=== PATIENT | female | born 1935 | race Caucasian/White ===

== ENCOUNTER → 2017-10-30 | Outpatient (CLI) | payer OTHER ==
[~2017-10-30] MED LIST: HYDR12.55 PO; LISI40TA PO; METO50TA8 PO; MULTTAB58 PO; PRAV40TA2 PO; VNTHFA/IN INH; WARF5TAB90 PO
[2017-10-30 10:46] LABS: BASO % 0.2 %; BASO ABS # 0.02 K/uL (0-0.2); EOS % 0.6 %; EOS ABS # 0.05 K/uL (0-0.5); HEMATOCRIT 45.5 % (37-47); HEMOGLOBIN 16.2 g/dL (12.0-16.0); IG# 0.03 K/uL (0.00-0.02); LYMPH % 20.9 %; LYMPH ABS # 1.76 K/uL (1.2-3.4); MEAN CORPUSCULAR HEMOGLOBIN 31.3 pg (25-34); MEAN CORPUSCULAR HGB CONC 35.6 g/dl (32-36); MEAN PLATELET VOLUME 10.6 fL (7.4-10.4); MONO % 11.8 %; MONO ABS # 0.99 K/uL (0.11-0.59); NEUT % 66.1 %; NEUT ABS # 5.57 K/uL (1.4-6.5); PLATELET COUNT 208 K/uL (130-400); RED CELL DISTRIBUTION WIDTH SD 41.3 fL (36.4-46.3); WHITE BLOOD COUNT 8.42 K/uL (4.8-10.8)
[2017-10-30 10:54] LABS: INR 2.6 (0.9-1.1)
[2017-10-30 11:10] LABS: ALBUMIN 3.7 gm/dl (3.4-5.0); ALKALINE PHOSPHATASE 89 U/L (45-117); ALT/SGPT 25 U/L (12-78); AST/SGOT 22 U/L (15-37); BLOOD UREA NITROGEN 14 mg/dl (7-18); CALCIUM 9.2 mg/dl (8.5-10.1); CARBON DIOXIDE 28 mmol/L (21-32); CHOLESTEROL 179 mg/dl (0-200); CREATININE 0.86 mg/dl (0.60-1.20); GLUCOSE 117 mg/dl (70-99); POTASSIUM 4.1 mmol/L (3.5-5.1); SODIUM 140 mmol/L (136-145); TOTAL PROTEIN 7.4 gm/dl (6.4-8.2)
[2017-10-30 11:20] LABS: HEMOGLOBIN A1C 5.5 % (4.5-5.6)
== END | disposition home or self-care (01) ==
LOC: C.LAB 10:19
PROVIDERS: ATTEND Neuromusculoskeletal Medicine & OMM
DX: E78.5 Hyperlipidemia, unspecified (principal); I10 Essential (primary) hypertension; I48.91 Unspecified atrial fibrillation; R73.03 Prediabetes

== ENCOUNTER 2023-08-21 09:53 | Inpatient (IN) ==
[2023-08-21] MEDS ORDERED: MoRPHine SULFATE 2 MG/ML CARP IV PRN (10:20)
[2023-08-21] MEDS: MoRPHine SULFATE 4 MG/ML 1 ML CARP\\VIAL IV PRN ×2 (10:30→16:58)
[2023-08-21] MEDS: ACETAMINOPHEN 1,000 MG/100 ML VIAL IV STA (10:30)
[2023-08-21 10:35] LABS: Basophils # (auto) 0.03 K/uL (0.00-0.20); Basophils % (auto) 0.3 %; Eosinophils # (auto) 0.07 K/uL (0.00-0.50); Eosinophils % (auto) 0.8 %; Hematocrit (blood only) 45.9 % (37.0-47.0); Hemoglobin 16.2 g/dl (12.0-16.0); Immature Granulocytes # (auto) 0.06 K/uL (0.01-0.20); Immature Granulocytes % (auto) 0.6 %; Lymphocytes # (auto) 1.83 K/uL (1.20-3.40); Lymphocytes % (auto) 19.6 %; Mean Corpuscular Hemoglobin 30.3 pg (25.0-34.0); Mean Corpuscular Hgb Conc 35.3 g/dL (32.0-36.0); Mean Corpuscular Volume 85.8 fL (80.0-100.0); Mean Platelet Volume 10.5 fL (9.4-12.4); Monocytes # (auto) 0.86 K/uL (0.11-0.59); Monocytes % (auto) 9.2 %; Neutrophils # (auto) 6.48 K/uL (1.40-6.50); Neutrophils % (auto) 69.5 %; Platelet Count 189 K/uL (130-400); RDW Standard Deviation 39.9 fL (36.4-46.3); Red Blood Count 5.35 M/uL (4.20-5.40); White Blood Count 9.33 K/ul (4.8-10.8)
[2023-08-21 10:55] LABS: Albumin Globulin Ratio 1.4 (0.9-2); Albumin Level 3.8 gm/dl (3.4-5.0); BUN Creatinine Ratio 20.9 (10-20); Bilirubin,Total 0.9 mg/dl (0.2-1.0); Calcium 9.6 mg/dl (8.6-10.3); Creatinine Clr Calc Pharmacy 53.6 ml/min; Est GFR (African American) 92.2 ml/min; Est GFR (Non-African American) 79.6 ml/min; Globulin 2.7 gm/dl (2.5-4.0); Potassium 3.5 mmol/L (3.5-5.1); Total Protein 6.5 gm/dl (6.0-8.3)
[2023-08-21 10:58] LABS: Partial Thromboplastin Time 27 Seconds (21-31); Prothrombin Time 11.1 Seconds (9.0-12.0)
--- NOTE | 2023-08-21 11:19 | CT Scan Report ---
CT OF THE HEAD WITHOUT CONTRAST CLINICAL HISTORY: fall on thinners COMPARISON STUDY: Head CT May 17, 2022. CT DOSE: 1094.1 mGy.cm TECHNIQUE: Helical axial images of the head were obtained without IV contrast. Automated exposure con trol was utilized for the study. A dose lowering technique was utilized adhering to the principles o f ALARA. FINDINGS: No acute intracranial hemorrhage, midline shift or mass effect is present. The ventricular system is stable. White matter hypodensities are similar to prior exam and favor small vessel disease . The basal cisterns are patent. No extra-axial collections are present. There are no findings to sug gest acute dural sinus thrombosis or acute territorial infarct. No significant calvarial abnormalitie s are present. Visualized portions of the sinuses and mastoid air cells are clear. IMPRESSION: 1. No acute intracranial findings. 2. No calvarial fractures. ACT 112: Negative or not required by law. Electronically signed by: Haresh Anderson M.D. 08/21/2023 11:17 AM
--- NOTE | 2023-08-21 11:38 | Emergency Department Note ---
Impression & Plan director long term care (current) use of anticoagulants, Fall from standing, Displaced fracture of right femoral neck ED Provider Note NAME: YOLANDA AGUILAR AGE: 88 SEX: F : 1935 ARRIVES VIA: Ambulance INFORMANT: Patient ED PROVIDER(S): Adarsh Nazario MD CHIEF COMPLAINT: Fall, right hip pain PLAN: Disposition: Admit MEDICAL DECISION MAKING: The patient is a pleasant 88-year-old woman with a past medical history of atrial fibrillation on Eliquis, history of CHF, history of osteoarthritis presents to the ED emergency department via EMS after having a fall when she experienced pain in her right hip which she has had chronically and lost her balance. She denies head strike or loss of consciousness. The patient and family at bedside describe that she has had ongoing pain in her right hip for months. In particular they feel her pain was worse over the past week. However they are confident she has not had any falls prior to that. However they do note that they were aware of severe arthritis and that a hip replacement had been recommended on her outpatient follow-up with orthopedics. However the patient at that time was preferring to defer surgery. Otherwise no fevers, chills, cough, congestion and GERD symptoms. Of note, the patient did arrive to emergency department during time of high volume, acuity and prolonged emergency department waiting times. Critical pathways initiated from triage. On evaluation the patient is uncomfortable no distress, afebrile stable vital signs. She has deformity of the right hip with shortening. Distal PMS is intact. EKG without overt acute ischemia. CXR negative for acute cardiopulmonary process per my personal preliminary review/interpretation. WBC and platelets normal limits. HCT within normal limits. Chemistry without metabolic acidosis. Electrolytes and LFTs unremarkable. UA without evidence of infection. CT of the head negative for acute abnormalities. Chest x-ray negative for acute abnormalities. X-rays of the pelvis and right hip demonstrate subcapital femoral neck fracture interpreted as age-indeterminate. Findings reviewed with the patient and family at bedside. They agree with plan for admission. Case was discussed with Dr. Puri, [facility] hospitalist, who will evaluate the patient for admission. Dr. James, orthopedics on-call was made aware. Triage Nursing notes reviewed and agree them. Prior/external medical records reviewed Vital Signs: reviewed Differential diagnosis: Fracture, dislocation, contusion, intra-abdominal, pneumothorax, intrathoracic, intracranial, neurologic, compartment syndrome, rhabdomyolysis, as well as other pathologies. ER treatment provided: See below. Diagnostics interpreted by me: ECG: Atrial fibrillation with RVR, 103 bpm, no ectopy, right bundle much block, left posterior fascicular block, no overt ST elevation or depression, QTc 479, QRS 112. Cardiac Monitoring: An order for continuous cardiac monitoring was placed and demonstrated Atrial fibrillation with RVR, 103 bpm, no ectopy. Laboratory studies: See below Imaging studies: See below Consultation(s): Dr. Puri, [facility] hospitalist Dr. James, orthopedics on-call HPI: The patient is a pleasant 88-year-old woman with a past medical history of atrial fibrillation on Eliquis, history of CHF, history of osteoarthritis presents to the ED emergency department via EMS after having a fall when she experienced pain in her right hip which she has had chronically and lost her balance. She denies head strike or loss of consciousness. The patient and family at bedside describe that she has had ongoing pain in her right hip for months. In particular they feel her pain was worse over the past week. However they are confident she has not had any falls prior to that. However they do note that they were aware of severe arthritis and that a hip replacement had been recommended on her outpatient follow-up with orthopedics. However the patient at that time was preferring to defer surgery. Otherwise no fevers, chills, cough, congestion and GERD symptoms. ROS: See above HPI for pertinent positives & negatives. A total of 10 systems reviewed and were otherwise negative. VITALS:See Below PHYSICAL EXAMINATION: GENERAL: Awake, alert, uncomfortable-appearing, in no distress, BMI 20.8. HENT: Normocephalic, atraumatic. Oropharynx unremarkable. EYES: Normal conjunctiva. Sclera non-icteric. NECK: Supple. No nuchal rigidity. FROM. No JVD. RESPIRATORY: Clear to auscultation. CARDIAC: Regular rate, irregular rhythm. Extremities warm and well perfused. Pulses equal. ABDOMEN: Soft, non-distended. No tenderness to palpation. No rebound or guarding. No masses. MUSCULOSKELETAL: Chest examination reveals no tenderness. The back is symmetrical on inspection without obvious abnormality. There is no CVA tenderness to palpation. Deformity of the right hip with shortening. Distal PMS is intact. LOWER EXTREMITIES: Calves are equal size bilaterally and non-tender. No edema. No discoloration. NEURO: Normal sensorium. No sensory or motor deficits noted. SKIN: No rash or jaundice noted. 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 of foot (Chronic) Overflow incontinence Chronic systolic (congestive) heart failure Medical History Meningioma Osteoarthritis of right hip Osteoarthritis Diabetes type 2, uncontrolled History of ischemic cardiomyopathy Severe mitral regurgitation Severe tricuspid regurgitation CHF (congestive heart failure) Atrial fibrillation Nausea and vomiting after administration of anesthetic agent Osteoarthritis History of gastric ulcer On anticoagulant therapy Deep vein thrombosis Hyperlipidemia Hypertension Asthma Smoking history Surgical History Hx of dilation and curettage History of neck surgery History of section History of esophagogastroduodenoscopy (EGD) History of cholecystectomy History of appendectomy History of tooth extraction History of right cataract extraction Family History Father Family history of diabetes mellitus Cardiovascular disease Myocardial infarction Sister Family hx of colon cancer Colorectal cancer Mother Hypertension Brother Cancer Denies family history of Ovarian cancer Prostate cancer Breast cancer Social History Smoking Status: Never smoker Second Hand Exposure: No; Do You Dip or Chew Tobacco: No; Hx Alcohol Use: No Hx Substance Use: No Preferred Language: Macedonian Communication Ability: Effective Visual Impairment: No Limitations Hearing Ability: Normal Student Teacher Required: No Beliefs That Will Affect Care: None marital status: Single Current Living Situation: Alone current occupational status: retired How many Children do You have: 1 Feels Safe at Home: Yes Childhood Exposure to Second-Hand Smoke: Yes Diet: diabetic caffeine: Yes during the past year weight has: remained stable Dental Care, Regularly: No Physical Activity Frequency: Does not Exercise Seatbelt Use: always Sunscreen Use: No Assistive Devices: Glasses Allergies Allergies Allergy/AdvReac Type Severity Reaction Status Date / Time latex Allergy Severe swelling Verified 05/08/23 15:25 of lips codeine AdvReac Intermediate GI SYMPTOMS Verified 05/08/23 15:25 atorvastatin AdvReac Unknown unknown Verified 05/08/23 15:25 metronidazole AdvReac Unknown unknown Verified 05/08/23 15:25 procaine AdvReac Unknown unknown Verified 05/08/23 15:25 Home Meds Home Medications Medication Instructions Recorded Confirmed multivitamin 1 tab PO QPM 01/07/18 08/21/23 apixaban 5 mg tablet 5 mg PO BID 08/29/18 08/21/23 flash glucose scanning reader 06/02/19 05/08/23 (FreeStyle Daphne 10 Day [place]) furosemide 40 mg tablet 40 mg PO UD 07/25/21 08/21/23 sacubitril 24 mg-valsartan 26 mg 1 tab PO BID 07/25/21 08/21/23 tablet (Entresto) fenofibrate nanocrystallized 145 145 mg PO DAILY 05/17/22 08/21/23 mg tablet metoprolol succinate 100 mg 100 mg PO UD 05/17/22 08/21/23 tablet,extended release 24 hr metoprolol succinate 25 mg 25 mg PO UD 05/17/22 08/21/23 tablet,extended release 24 hr levothyroxine 50 mcg tablet 0 mcg PO DAILY 08/21/23 08/21/23 (Synthroid) Previous Rx's Medication Instructions Recorded diaper,brief,adult,disposable #32 ea 10/08/18 diaper,brief,adult,disposable #32 ea 04/15/19 flash glucose sensor (FreeStyle #1 ea 07/25/21 Daphne 2 Sensor kit) Bedside Commode #1 ea 08/22/22 flash glucose sensor (FreeStyle #1 ea 04/04/23 Daphne 14 Day Sensor kit) glimepiride 2 mg tablet 2 mg PO DAILY #90 tabs 04/04/23 dapagliflozin propanediol 5 mg 5 mg PO DAILY #90 tabs 05/08/23 tablet (Farxiga) pravastatin 80 mg tablet 80 mg PO DAILY #90 tabs 05/16/23 digoxin 125 mcg (0.125 mg) tablet 125 mcg PO QAM #90 tabs 06/04/23 Results & Data (ED) Vital Signs Vital Signs - 24 hr 08/21/23 10:04 08/21/23 10:34 08/21/23 10:36 Temperature 36.7 C Temperature Source Skin Pulse Rate 120 H 108 H 113 H Pulse Rate from SpO2 Sensor 113 H Respiratory Rate 18 17 Blood Pressure 169/100 H Blood Pressure Mean 123 Pulse Oximetry 97 99 Oxygen Delivery Method Room Air Sepsis Recent Fever Within 48 Hours No Sepsis New/Unexplained Change in Mental Status No Sepsis Action Taken by Nursing No Action Required 08/21/23 11:05 08/21/23 11:39 08/21/23 12:00 Temperature Temperature Source Pulse Rate 122 H 130 H 94 H Pulse Rate from SpO2 Sensor 107 H 109 H Respiratory Rate 22 13 17 Blood Pressure 168/143 H 171/121 H 186/118 H Blood Pressure Mean 151 137 140 Pulse Oximetry 98 98 97 Oxygen Delivery Method Room Air Room Air Room Air Sepsis Recent Fever Within 48 Hours Sepsis New/Unexplained Change in Mental Status Sepsis Action Taken by Nursing Laboratory Data Attestation: I reviewed the patient's lab results. 08/21/23 10:15 08/21/23 10:15 Lab Results 08/21/23 08/21/23 Range/Units 10:15 11:35 WBC 9.33 (4.8-10.8) K/ul RBC 5.35 (4.20-5.40) M/uL Hgb 16.2 H (12.0-16.0) g/dl Hct 45.9 (37.0-47.0) % MCV 85.8 (80.0-100.0) fL MCH 30.3 (25.0-34.0) pg MCHC 35.3 (32.0-36.0) g/dL RDW Std Deviation 39.9 (36.4-46.3) fL RDW Coeff of [place] 13.0 (11.5-14.5) % Plt Count 189 (130-400) K/uL MPV 10.5 (9.4-12.4) fL Immature Gran % (Auto) 0.6 % Neut % (Auto) 69.5 % Lymph % (Auto) 19.6 % [place] % (Auto) 9.2 % Eos % (Auto) 0.8 % Baso % (Auto) 0.3 % Neut # (Auto) 6.48 (1.40-6.50) K/uL Lymph # (Auto) 1.83 (1.20-3.40) K/uL [place] # (Auto) 0.86 H (0.11-0.59) K/uL Eos # (Auto) 0.07 (0.00-0.50) K/uL Baso # (Auto) 0.03 (0.00-0.20) K/uL Immature Gran # (Auto) 0.06 (0.01-0.20) K/uL ESR 13 (0-30) mm/hr PT 11.1 (9.0-12.0) Seconds INR 1.0 (0.9-1.1) APTT 27 (21-31) Seconds PTT Ratio 1.0 Sodium 138 (136-145) mmol/L Potassium 3.5 (3.5-5.1) mmol/L Chloride 106 (98-107) mmol/L Carbon Dioxide 21 (21-32) mmol/L Anion Gap 11 (3-11) BUN 14 (6-23) mg/dl Creatinine 0.67 (0.6-1.2) mg/dl Est Cr Clr Drug Dosing 53.6 ml/min Est GFR ( Amer) 92.2 ml/min Est GFR (Non-Af Amer) 79.6 ml/min BUN/Creatinine Ratio 20.9 H (10-20) Glucose 124 H (70-99(Fasting)) mg/dl Calcium 9.6 (8.6-10.3) mg/dl Total Bilirubin 0.9 (0.2-1.0) mg/dl AST 34 (13-39) U/L ALT 27 (7-52) U/L Alkaline Phosphatase 62 (34-104) U/L Total Protein 6.5 (6.0-8.3) gm/dl Albumin 3.8 (3.4-5.0) gm/dl Globulin 2.7 (2.5-4.0) gm/dl Albumin/Globulin Ratio 1.4 (0.9-2) Urine Color Yellow Urine Appearance Clear (Clear) Urine pH 7.5 (4.5-7.5) Ur Specific [place] 1.008 (1.000-1.030) Urine Protein Negative (Negative) Urine Glucose (UA) Negative (Negative) Urine Ketones Negative (Negative) Urine Blood Negative (Negative) Urine Nitrite Negative (Negative) Urine Bilirubin Negative (Negative) Urine Urobilinogen Negative (Negative) Ur Leukocyte Esterase Negative (Negative) Administered Medications Lactated Ringer's (Lr) 1,000 mls @ 110 mls/hr IV .Q9H6M TRISHA Stop: 08/22/23 16:16 Last Admin: 08/21/23 22:37 Dose: 110 mls/hr Documented By: Infusion: 08/21/23 22:37 Dose: Infused Documented By: Admin: 08/21/23 13:50 Dose: 110 mls/hr Documented By: GERONIMO Morphine Sulfate (Morphine Sulfate 2 Mg/Ml Carp) 1 mg IV Q4H PRN PRN Reason: Moderate Pain (4,5,6) on NRS Stop: 09/04/23 13:25 Last Admin: 08/21/23 20:39 Dose: 1 mg Documented By: ESPINOZA Morphine Sulfate (Morphine Sulfate 4 Mg/Ml 1 Ml Carp\Vial) 2 mg IV Q4H PRN PRN Reason: Severe Pain (7,8,9,10) on NRS Stop: 09/04/23 13:25 Last Admin: 08/21/23 16:58 Dose: 2 mg Documented By: WRJp Discontinued Medications Digoxin (Digoxin 0.125 Mg Tab) 0.125 mg PO NOW ONE Stop: 08/21/23 13:49 Last Admin: 08/21/23 15:07 Dose: 0.125 mg Documented By: GERONIMO Acetaminophen (Ofirmev) 1,000 mg in 100 mls @ 400 mls/hr IV NOW STA Stop: 08/21/23 10:34 Last Infusion: 08/21/23 10:49 Dose: Infused Documented By: Admin: 08/21/23 10:30 Dose: 400 mls/hr Documented By: AVERY Insulin Aspart (Insulin Aspart Per Unit Charge) 0 units SC ACHS TRISHA Stop: 09/20/23 16:29 Last Admin: 08/21/23 21:33 Dose: Not Given Documented By: ESPINOZA Co-signed By: JB Admin: 08/21/23 17:48 Dose: Not Given Documented By: WRJp Metoprolol Succinate (Metoprolol Succ 25mg Ext Rel Tab) 125 mg PO NOW ONE Stop: 08/21/23 13:31 Last Admin: 08/21/23 15:07 Dose: 125 mg Documented By: GERONIMO Morphine Sulfate (Morphine Sulfate 4 Mg/Ml 1 Ml Carp\Vial) 2 mg IV Q1H PRN PRN Reason: Severe Pain (Rating 7,8,9,10) Stop: 09/04/23 10:19 Last Admin: 08/21/23 11:36 Dose: 2 mg Documented By: Admin: 08/21/23 10:30 Dose: 2 mg Documented By: AVERY Morphine Sulfate (Morphine Sulfate 2 Mg/Ml Carp) 2 mg IV NOW STA Stop: 08/21/23 11:21 Last Admin: 08/21/23 11:42 Dose: Not Given Documented By: LYN Imaging Data Radiologist's Impression: Hip/Pelvis X-Ray 08/21/23 10:07 XR hip RT 2V w pelvis CLINICAL HISTORY: Fall. COMPARISON: Right hip radiographs January 27, 2021. FINDINGS: There is a displaced subcapital right femoral neck fracture. This fracture is age indeterminate but new since radiographs of December 28, 2020. Apparent resorption of a portion of the right femoral neck. Severe right hip osteoarthritis is noted with marked joint space narrowing with subchondral sclerosis and cystic change. No additional fractures are identified on this exam. IMPRESSION: 1. Displaced subcapital right femoral neck fracture. This fracture is age indeterminate. 2. Severe right hip osteoarthritis. Marked right hip joint space narrowing with subchondral sclerosis and flattening of the right femoral head with remodeling of the acetabulum. ACT 112: Negative or not required by law. Electronically signed by: Haresh Andersno M.D. 08/21/2023 11:[address] 08/21/23 10:08 CT OF THE HEAD WITHOUT CONTRAST CLINICAL HISTORY: fall on thinners COMPARISON STUDY: Head CT May 17, 2022. CT DOSE: 1094.1 mGy.cm TECHNIQUE: Helical axial images of the head were obtained without IV contrast. Automated exposure control was utilized for the study. A dose lowering technique was utilized adhering to the principles of ALARA. FINDINGS: No acute intracranial hemorrhage, midline shift or mass effect is present. The ventricular system is stable. White matter hypodensities are similar to prior exam and favor small vessel disease. The basal cisterns are patent. No extra-axial collections are present. There are no findings to suggest acute dural sinus thrombosis or acute territorial infarct. No significant calvarial abnormalities are present. Visualized portions of the sinuses and mastoid air cells are clear. IMPRESSION: 1. No acute intracranial findings. 2. No calvarial fractures. ACT 112: Negative or not required by law. Electronically signed by: Haresh Anderson M.D. 08/21/2023 11:17 AM Chest X-Ray 08/21/23 11:24 XR chest 1V not portable HISTORY: preop COMPARISON: Chest 03/15/2018. FINDINGS: No pneumothorax. No pleural effusions. The lungs are clear. The heart remains borderline enlarged. No focal lung consolidations to suggest a pneumonia. No evidence for pulmonary edema. There are old, healed left-sided rib fractures. Prior cholecystectomy. There is mild elevation of the right hemidiaphragm. IMPRESSION: No acute process. ACT 112: Negative or not required by law. Electronically signed by: Scott Cortes M.D. 08/21/2023 11:51 AM Discharge Plan Visit Data Chief Complaint: Hip Pain Stated Complaint: FALL, HIP PAIN ED Provider: Adarsh Nazario Discharge Problem: intermediate (current) use of anticoagulants, Fall from standing, Displaced fracture of right femoral neck Patient Disposition: Admitted As Inpatient Discharge Instructions Interventions: ED Discharge Assessment Last Done: 08/21/23 13:03 Discharge Problem: Fall from standing Qualifiers: Encounter type: initial encounter Qualified Code(s): W19.XXXA - Unspecified fall, initial encounter
[2023-08-21] MEDS: MoRPHine SULFATE 2 MG/ML CARP IV STA (11:42)
[2023-08-21 11:53] LABS: Appearance Urine Clear (Clear); Bilirubin Urine Negative (Negative); Blood Urine Negative (Negative); Color Urine Yellow; Glucose Urine UA Negative (Negative); Ketones Urine Negative (Negative); Leukocyte Esterase Urine Negative (Negative); Nitrite Urine Negative (Negative); Protein Urine Negative (Negative); Specific Gravity Urine 1.008 (1.000-1.030); Urobilinogen Urine Negative (Negative); pH Urine 7.5 (4.5-7.5)
--- NOTE | 2023-08-21 11:53 | XRay Report ---
XR chest 1V not portable HISTORY: preop COMPARISON: Chest 03/15/2018. FINDINGS: No pneumothorax. No pleural effusions. The lungs are clear. The heart remains borderline en larged. No focal lung consolidations to suggest a pneumonia. No evidence for pulmonary edema. There a re old, healed left-sided rib fractures. Prior cholecystectomy. There is mild elevation of the right hemidiaphragm. IMPRESSION: No acute process. ACT 112: Negative or not required by law. Electronically signed by: Scott Cortes M.D. 08/21/2023 11:51 AM
--- NOTE | 2023-08-21 11:59 | XRay Report ---
XR hip RT 2V w pelvis CLINICAL HISTORY: Fall. COMPARISON: Right hip radiographs January 27, 2021. FINDINGS: There is a displaced subcapital right femoral neck fracture. This fracture is age indeterm inate but new since radiographs of December 28, 2020. Apparent resorption of a portion of the right femoral neck. Severe right hip osteoarthritis is noted with marked joint space narrowing with subchon dral sclerosis and cystic change. No additional fractures are identified on this exam. IMPRESSION: 1. Displaced subcapital right femoral neck fracture. This fracture is age indeterminate. 2. Severe right hip osteoarthritis. Marked right hip joint space narrowing with subchondral sclerosis and flattening of the right femoral head with remodeling of the acetabulum. ACT 112: Negative or not required by law. Electronically signed by: Haresh Anderson M.D. 08/21/2023 11:57 AM
--- NOTE | 2023-08-21 12:09 | History & Physical Report ---
Date of Service August 21, 2023 Assessment & Plan (1) Displaced fracture of right femoral neck: Plan: Patient sustained a mechanical ground-level fall on the morning of 08/20 Right hip x-ray on arrival revealed displaced subcapital right femoral neck fracture CT revealed no acute findings No signs of active bleeding on clinical exam; Hgb 16.2 Hold Eliquis (patient did not take the morning of 08/20; last taken the evening of 08/19) Acetaminophen IV q8h as needed for pain 1-3 Morphine 1-2mg IV q4h as needed for breakthrough pain Orthopedic surgery consulted Plan is to go to the OR on 08/21 Hx of GA in 2018 and CHF Cardiology consulted for perioperative cardiac risk assessment Bedrest for now A.m. 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 Pan at [facility] [place] Hx of presumed ischemic cardiomyopathy with an EF in the range of 25% with an LAD wall motion abnormality in 03/2018 Echo in 05/2018 with EF at 45% (7) Severe mitral regurgitation: (8) Severe tricuspid regurgitation: (9) Hyperlipidemia: Plan [facility] DNR/DNI T2DM diet; n.p.o. at midnight VTE PPx: Hold Eliquis for now in the setting of acute trauma; mechanical DVT PPx per orthopedics History of Present Illness Chief Complaint: Fall, Right Hip Pain Primary Care Provider: Percy Kennedy, III, PAUL Kathie is a pleasant 88-year-old female with PMH of HTN, HLD, asthma, DVT, gastric ulcer, atrial fibrillation (on apixaban), CHF, and T2DM. She presented via EMS after sustaining a ground-level mechanical fall on the morning of 08/20. Patient's daughter (Daphne) is present at the bedside and provides additional history. Patient lives alone in a senior apartment. She reports that she was trying to close her patio door slider, and her right leg gave out. She is currently on blood thinners. No head strike. No LOC. Patient fell onto her right hip and back. She notes that earlier in the week, she "turned weird" and may have injured her hip, as her right leg has been numb x 1 week with standing and walking. Patient ambulates with a walker chair at baseline. After her fall, she was unable to stand, and tried crawling across the floor. Luckily, building inspectors came by about 20 minutes later and helped her up and called an ambulance. Patient denies feeling dizzy prior to her fall, however she does note some lightheadedness with walking but not today. She believes she just lost her balance or her right leg gave out on her. Patient does receive steroid injections into her right hip for osteoarthritis, with the last injection being on 08/09/2023. She has been told that she will need a hip replacement for the past several years. At time of admission, she rates her right hip pain as a constant 6/10 pain. Worse with movements. No radiation to the lower back. No pain in her left hip. She notes that the right leg is numb. Patient did not take any pain medicine before coming in. The only medication she took this morning was her thyroid medicine; she has not had her Eliquis today, and believes she last took it the evening of 08/19. Patient denies smoking, tobacco use, and recent alcohol use. She does have a history of GA in 2018; patient's daughter believes no stents were placed at that time; she is not currently on Plavix or aspirin. Patient is hypertensive at 186/118 at time of admission; vitals otherwise stable. ED course: Morphine sulfate 2 mg IV Acetaminophen 1000 mg IV ROS: Patient endorses R hip pain, right leg numbness and tingling, loss of appetite, and decreased urinary frequency (which patient attributes to not drinking enough fluids). Patient denies fever, chills, dizziness, lightheadedness, REDD, chest pain, chest palpitations, SOB, abdominal pain, N/V/D, change in urinary/bowel habits, blood in the urine or stool, or saddle anesthesia. Allergies Allergy/AdvReac Type Severity Reaction Status Date / Time latex Allergy Severe swelling Verified 05/08/23 15:25 of lips codeine AdvReac Intermediate GI SYMPTOMS Verified 05/08/23 15:25 atorvastatin AdvReac Unknown unknown Verified 05/08/23 15:25 metronidazole AdvReac Unknown unknown Verified 05/08/23 15:25 procaine AdvReac Unknown unknown Verified 05/08/23 15:25 Home Medications Medication Instructions Recorded Confirmed Type multivitamin 1 tab PO QPM 01/07/18 08/21/23 History apixaban 5 mg tablet 5 mg PO BID 08/29/18 08/21/23 History diaper,brief,adult,disposable #32 ea 10/08/18 05/08/23 Rx diaper,brief,adult,disposable #32 ea 04/15/19 05/08/23 Rx flash glucose scanning reader 06/02/19 05/08/23 History (FreeStyle Daphne 10 Day Anderson) flash glucose sensor (FreeStyle #1 ea 07/25/21 05/08/23 Rx Daphne 2 Sensor kit) furosemide 40 mg tablet 40 mg PO UD 07/25/21 08/21/23 History sacubitril 24 mg-valsartan 26 mg 1 tab PO BID 07/25/21 08/21/23 History tablet (Entresto) fenofibrate nanocrystallized 145 145 mg PO DAILY 05/17/22 08/21/23 History mg tablet metoprolol succinate 100 mg 100 mg PO UD 05/17/22 08/21/23 History tablet,extended release 24 hr metoprolol succinate 25 mg 25 mg PO UD 05/17/22 08/21/23 History tablet,extended release 24 hr Bedside Commode #1 ea 08/22/22 05/08/23 Rx flash glucose sensor (FreeStyle #1 ea 04/04/23 05/08/23 Rx Daphne 14 Day Sensor kit) glimepiride 2 mg tablet 2 mg PO DAILY #90 tabs 04/04/23 08/21/23 Rx dapagliflozin propanediol 5 mg 5 mg PO DAILY #90 tabs 05/08/23 08/21/23 Rx tablet (Farxiga) pravastatin 80 mg tablet 80 mg PO DAILY #90 tabs 05/16/23 08/21/23 Rx digoxin 125 mcg (0.125 mg) tablet 125 mcg PO QAM #90 tabs 06/04/23 08/21/23 Rx levothyroxine 50 mcg tablet 0 mcg PO DAILY 08/21/23 08/21/23 History (Synthroid) Past Med/Surg History Problem List (Updated 08/21/23 @ 17:32 by Adarsh Nazario MD) Fracture of femoral neck, right, closed (Acute) Displaced fracture of right femoral neck Hypothyroidism 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 (Chronic) Hypertension (Chronic) Smoking history (Chronic) Asthma (Chronic) Atrial fibrillation (Chronic) Severe tricuspid regurgitation (Chronic) Severe mitral regurgitation (Chronic) Patent foramen ovale (Chronic) Hyperlipidemia (Chronic) History of ischemic cardiomyopathy (Chronic) Fatigue (Chronic) Osteoarthritis (Chronic) Osteoarthritis of right hip (Chronic) 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 (Chronic) Loss of protective sensation of skin of foot (Chronic) Overflow incontinence Chronic systolic (congestive) heart failure Medical History Meningioma Osteoarthritis of right hip Osteoarthritis Diabetes type 2, uncontrolled History of ischemic cardiomyopathy Severe mitral regurgitation Severe tricuspid regurgitation CHF (congestive heart failure) Atrial fibrillation Nausea and vomiting after administration of anesthetic agent Osteoarthritis History of gastric ulcer On anticoagulant therapy Deep vein thrombosis Hyperlipidemia Hypertension Asthma Smoking history Surgical History Hx of dilation and curettage History of neck surgery History of section History of esophagogastroduodenoscopy (EGD) History of cholecystectomy History of appendectomy History of tooth extraction History of right cataract extraction Family History Father Family history of diabetes mellitus Cardiovascular disease Myocardial infarction Sister Family hx of colon cancer Colorectal cancer Mother Hypertension Brother Cancer Denies family history of Ovarian cancer Prostate cancer Breast cancer Social History Smoking Status: Never smoker Second Hand Exposure: No; Do You Dip or Chew Tobacco: No; Hx Alcohol Use: No Hx Substance Use: No Preferred Language: Jordanian Communication Ability: Effective Visual Impairment: No Limitations Hearing Ability: Normal Certified Orthotist/Pedorthist Required: No Beliefs That Will Affect Care: None marital status: Single Current Living Situation: Alone current occupational status: retired How many Children do You have: 1 Feels Safe at Home: Yes Childhood Exposure to Second-Hand Smoke: Yes Diet: diabetic caffeine: Yes during the past year weight has: remained stable Dental Care, Regularly: No Physical Activity Frequency: Does not Exercise Seatbelt Use: always Sunscreen Use: No Assistive Devices: Glasses Review of Systems Review of Systems: See HPI above Physical Exam Physical Exam: General: no acute distress; pleasant affect; non-toxic appearing; well- nourished; cooperative; SpO2 95% on RA HEENT: normocephalic, atraumatic; no scleral icterus; PERRLA w/ EOMs intact; moist mucus membrane; vision and hearing grossly intact Neck: supple; no lymphadenopathy; trachea midline Skin: warm, dry without signs of tenting; no cyanosis; no rashes, bruising, lesions, or erythema noted CV: chest wall NTP; irregularly irregular rhythm tachycardic around 100 bpm; S1/S2 normal; 2/6 systolic ejection murmur auscultated at the second ICS MCL; pulses intact and symmetric at radial, DP, and PT Lungs: no acute respiratory distress; symmetrical chest wall expansion; clear breath sounds across all lung ghotra w/o adventitious sounds; no wheezing ABD: Soft, NTP; BS present; no rebound/guarding; no distention MSK: no tics or fasciculations; no edema noted in the LEs b/l, nonerythematous; right hip is NTP LEs: Patient demonstrates ability to wiggle toes, plantarflex, and dorsiflex bilaterally against resistance; patient reports sensation is intact and symmetric in her lower extremities assessed via light touch at the toes and calves Neuro: A&Ox3; normal mood and affect; fluent speech; no focal deficits; sensation intact in the LEs bilaterally Results & Data Results & Data Vital Signs (Past 12 Hours) Vital Signs Temp Pulse Resp BP Pulse Ox O2 Del Method 08/21/23 10:36 113 H 08/21/23 10:34 108 H 17 99 08/21/23 10:04 36.7 C 120 H 18 169/100 H 97 Room Air Laboratory Results Abnormal lab results 08/21/23 Range/Units 10:15 Hgb 16.2 H (12.0-16.0) g/dl [place] # (Auto) 0.86 H (0.11-0.59) K/uL BUN/Creatinine Ratio 20.9 H (10-20) Glucose 124 H (70-99(Fasting)) mg/dl Diagnostic Findings Hip/Pelvis X-Ray 08/21/23 10:07 XR hip RT 2V w pelvis CLINICAL HISTORY: Fall. COMPARISON: Right hip radiographs January 27, 2021. FINDINGS: There is a displaced subcapital right femoral neck fracture. This fracture is age indeterminate but new since radiographs of December 28, 2020. Apparent resorption of a portion of the right femoral neck. Severe right hip osteoarthritis is noted with marked joint space narrowing with subchondral sclerosis and cystic change. No additional fractures are identified on this exam. IMPRESSION: 1. Displaced subcapital right femoral neck fracture. This fracture is age indeterminate. 2. Severe right hip osteoarthritis. Marked right hip joint space narrowing with subchondral sclerosis and flattening of the right femoral head with remodeling of the acetabulum. ACT 112: Negative or not required by law. Electronically signed by: Haresh Anderson M.D. 08/21/2023 11:[address] 08/21/23 10:08 CT OF THE HEAD WITHOUT CONTRAST CLINICAL HISTORY: fall on thinners COMPARISON STUDY: Head CT May 17, 2022. CT DOSE: 1094.1 mGy.cm TECHNIQUE: Helical axial images of the head were obtained without IV contrast. Automated exposure control was utilized for the study. A dose lowering technique was utilized adhering to the principles of ALARA. FINDINGS: No acute intracranial hemorrhage, midline shift or mass effect is present. The ventricular system is stable. White matter hypodensities are similar to prior exam and favor small vessel disease. The basal cisterns are patent. No extra-axial collections are present. There are no findings to suggest acute dural sinus thrombosis or acute territorial infarct. No significant calvarial abnormalities are present. Visualized portions of the sinuses and mastoid air cells are clear. IMPRESSION: 1. No acute intracranial findings. 2. No calvarial fractures. ACT 112: Negative or not required by law. Electronically signed by: Haresh Anderson M.D. 08/21/2023 11:17 AM Chest X-Ray 08/21/23 11:24 XR chest 1V not portable HISTORY: preop COMPARISON: Chest 03/15/2018. FINDINGS: No pneumothorax. No pleural effusions. The lungs are clear. The heart remains borderline enlarged. No focal lung consolidations to suggest a pneumonia. No evidence for pulmonary edema. There are old, healed left-sided rib fractures. Prior cholecystectomy. There is mild elevation of the right hemidiaphragm. IMPRESSION: No acute process. ACT 112: Negative or not required by law. Electronically signed by: Scott Cortes M.D. 08/21/2023 11:51 AM ECG Additional Comments: ECG revealed atrial fibrillation with RVR at 103 bpm; QTc 479 Code Status & VTE Plan Code Status DNR/DNI VTE Prophylaxis Plan VTE Prophylaxis will be ordered: Yes Supervising Physician Co-Signing Physician Notes Patient seen and examined, chart reviewed, case discussed with Scott Saleh PA-C and I agree with the assessment and plan as above except as otherwise noted Labs and images reviewed Kathie is seen at the bedside following a fall with a displaced subcapital right femoral neck fracture. She is on eliquis, did not take this today. Her last dose of Eliquis was last night. She takes this for A-fib prophylaxis. She does not have a history of VTE/PE. She did have an GA in 2018 with an EF of 20-25% and LAD territory abnormalities at that time. Follow-up report notes presumed ischemic cardiomyopathy with LAD territory, do not see that a cath was performed. She had subsequent improvement on a follow-up echo 2019 with her EF raising to 45%. EKG on admission is with rate controlled A-fib and redemonst rates a known right bundle branch block. due to history of CHF with reduced ejection fraction with no history of stents and presumed ischemic disease, cardiology consulted for perioperative cardiac risk assessment and recommendations. She does have history of diabetes not on insulin last A1c 7.3%. No recent anginal symptoms. She reports she is compliant with her Lasix. At bedside assessment a sensation of soft touch in ankles is intact bilaterally, PT pulses intact bilaterally and does not show signs of neurovascular compromise. Do not hold metoprolol while n.p.o., this has been continued. Valsartan temporarily held pending orthopedic evaluation, hold this day of operative repair. Continue digoxin; level is pending. Anticoagulation held as noted. She is not on aspirin/Plavix at baseline agree with assessment and management as above. PG Care Time/CCT Total # of Minutes Spent Total Time Spent with Patient: Total time spent is greater than 50% in coordination of care (as documented) at patient's floor/unit and/or counseling patient: Coding [place] [address] INT INP/OBS CARE 3/75MIN Patient Type Established History Comprehensive Exam Comprehensive Medical Decision Making High Complexity Diagnoses Displaced fracture of right femoral neck S72.001A Longstanding persistent atrial fibrillation I48.11 Atrial fibrillation type: longstanding persistent Essential hypertension I10 Hypertension type: essential hypertension 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 E11.21 Chronic systolic (congestive) heart failure I50.22 History of ischemic cardiomyopathy Z86.79 Severe mitral regurgitation I34.0 Severe tricuspid regurgitation I07.1 Mixed hyperlipidemia E78.2 Hyperlipidemia type: mixed hyperlipidemia (2) Atrial fibrillation Atrial fibrillation type: longstanding persistent Qualified Code(s): I48.11 - Longstanding persistent atrial fibrillation (3) Hypertension Hypertension type: essential hypertension Qualified Code(s): I10 - Essential (primary) hypertension (9) Hyperlipidemia Hyperlipidemia type: mixed hyperlipidemia Qualified Code(s): E78.2 - Mixed hyperlipidemia
[2023-08-21] MEDS ORDERED: ONDANSETRON INJ 2 MG/ML 2 ML VIAL IV PRN (13:26)
[2023-08-21] MEDS ORDERED: DEXTROSE 50% 50 ML SYRINGE IV PRN (13:26)
[2023-08-21] MEDS ORDERED: CARBOHYDRATES FOR HYPOGLYCEMIA PO PRN (13:26)
[2023-08-21] MEDS ORDERED: GLUCAGON FOR INJ 1 MG VIAL SQ PRN (13:26)
[2023-08-21] MEDS ORDERED: GLUCOSE 10 TAB/TUBE PO PRN (13:26)
[2023-08-21] MEDS ORDERED: GLUCOSE 40% GEL 15 GM TUBE PO PRN (13:26)
[2023-08-21] MEDS ORDERED: ACETAMINOPHEN 1,000 MG/100 ML VIAL IV PRN (13:26)
[2023-08-21] MEDS: LACTATED RINGER'S 1,000 ML IV SCH (13:50)
[2023-08-21] MEDS: DIGOXIN 0.125 MG TAB PO ONE (15:07)
[2023-08-21] MEDS: METOPROLOL SUCC 25MG EXT REL TAB PO ONE (15:07)
--- NOTE | 2023-08-21 16:14 | Orthopedic Consultation ---
Date of Consultation August 21, 2023 Assessment & Plan (1) Displaced fracture of right femoral neck: Significant past medical history. Heart disease. Eliquis. Diabetes. Will need medically optimized prior to any surgical intervention. Cardiology consult pending. She would benefit from total hip arthroplasty given her pre-existing arthritis and radha mitten femoral neck fracture. She may eat today. N.p.o. after midnight for possible surgery tomorrow. She has previously been seen by Dr. Begum and will discuss surgical planning with him. Hold Eliquis. Recent injection may increase the risk of infection with hip replacement. Pain control. Mechanical devices for DVT prophylaxis. Labs and hip x-rays noted. (2) Osteoarthritis of right hip: History of Present Illness Attending Physician: Gabe Puri MD History of Present Illness 88-year-old female with history of right hip arthritis. Has been getting shots for arthritis by Dr. Christiano castaneda. Last injection was 2 or 3 weeks ago. Her pain is gradually gotten worse to the point where she has had to crawl. Lives in an apartment by herself. She was preparing for house inspection and was having an issue with her power. Earlier today she tried to open a window and fell and had severe pain in her right hip. She was unable to ambulate and was brought to the hospital for further evaluation where she was identified to have a fractured right hip in addition to severe hip arthritis. Allergies Allergy/AdvReac Type Severity Reaction Status Date / Time latex Allergy Severe swelling Verified 05/08/23 15:25 of lips codeine AdvReac Intermediate GI SYMPTOMS Verified 05/08/23 15:25 atorvastatin AdvReac Unknown unknown Verified 05/08/23 15:25 metronidazole AdvReac Unknown unknown Verified 05/08/23 15:25 procaine AdvReac Unknown unknown Verified 05/08/23 15:25 Home Medications Medication Instructions Recorded Confirmed Type multivitamin 1 tab PO QPM 01/07/18 08/21/23 History apixaban 5 mg tablet 5 mg PO BID 08/29/18 08/21/23 History diaper,brief,adult,disposable #32 ea 10/08/18 05/08/23 Rx diaper,brief,adult,disposable #32 ea 04/15/19 05/08/23 Rx flash glucose scanning reader 06/02/19 05/08/23 History (FreeStyle [place] 10 Day [place]) flash glucose sensor (FreeStyle #1 ea 07/25/21 05/08/23 Rx Daphne 2 Sensor kit) furosemide 40 mg tablet 40 mg PO UD 07/25/21 08/21/23 History sacubitril 24 mg-valsartan 26 mg 1 tab PO BID 07/25/21 08/21/23 History tablet (Entresto) fenofibrate nanocrystallized 145 145 mg PO DAILY 05/17/22 08/21/23 History mg tablet metoprolol succinate 100 mg 100 mg PO UD 05/17/22 08/21/23 History tablet,extended release 24 hr metoprolol succinate 25 mg 25 mg PO UD 05/17/22 08/21/23 History tablet,extended release 24 hr Bedside Commode #1 ea 08/22/22 05/08/23 Rx flash glucose sensor (FreeStyle #1 ea 04/04/23 05/08/23 Rx Daphne 14 Day Sensor kit) glimepiride 2 mg tablet 2 mg PO DAILY #90 tabs 04/04/23 08/21/23 Rx dapagliflozin propanediol 5 mg 5 mg PO DAILY #90 tabs 05/08/23 08/21/23 Rx tablet (Farxiga) pravastatin 80 mg tablet 80 mg PO DAILY #90 tabs 05/16/23 08/21/23 Rx digoxin 125 mcg (0.125 mg) tablet 125 mcg PO QAM #90 tabs 06/04/23 08/21/23 Rx levothyroxine 50 mcg tablet 0 mcg PO DAILY 08/21/23 08/21/23 History (Synthroid) Patient History Medical History Meningioma Osteoarthritis of right hip Osteoarthritis Diabetes type 2, uncontrolled History of ischemic cardiomyopathy Severe mitral regurgitation Severe tricuspid regurgitation CHF (congestive heart failure) Atrial fibrillation Nausea and vomiting after administration of anesthetic agent Osteoarthritis History of gastric ulcer On anticoagulant therapy Deep vein thrombosis Hyperlipidemia Hypertension Asthma Smoking history Surgical History Hx of dilation and curettage History of neck surgery History of section History of esophagogastroduodenoscopy (EGD) History of cholecystectomy History of appendectomy History of tooth extraction History of right cataract extraction Family History Father Family history of diabetes mellitus Cardiovascular disease Myocardial infarction Sister Family hx of colon cancer Colorectal cancer Mother Hypertension Brother Cancer Denies family history of Ovarian cancer Prostate cancer Breast cancer Social History Smoking Status: Never smoker Second Hand Exposure: No; Do You Dip or Chew Tobacco: No; Hx Alcohol Use: No Hx Substance Use: No Preferred Language: Kyrgyz Communication Ability: Effective Visual Impairment: No Limitations Hearing Ability: Normal 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 Beliefs That Will Affect Care: None marital status: Single Current Living Situation: Alone current occupational status: retired How many Children do You have: 1 Feels Safe at Home: Yes Childhood Exposure to Second-Hand Smoke: Yes Diet: diabetic caffeine: Yes during the past year weight has: remained stable Dental Care, Regularly: No Physical Activity Frequency: Does not Exercise Seatbelt Use: always Sunscreen Use: No Assistive Devices: Glasses Physical Exam Physical Exam: Foot warm with capillary refill less than 2 seconds PT pulse 1+ DP pulse not palpable leg nontender with the exception of pain in the right hip area and buttock area with any movement of the right leg. She has 5- out of 5 ankle and toe plantarflexion dorsiflexion and eversion. No significant swelling. Results & Data Vital Signs (Past 12 Hours) Vital Signs Temp Pulse Pulse Resp BP BP Pulse Ox 08/21/23 15:23 118 H 08/21/23 15:07 93 H 08/21/23 14:44 36.4 C L 90 16 174/94 H 39 L 08/21/23 14:05 138 H 08/21/23 13:00 109 H 16 180/109 H 95 08/21/23 12:00 94 H 17 186/118 H 97 08/21/23 11:39 130 H 13 171/121 H 98 08/21/23 11:05 122 H 22 168/143 H 98 08/21/23 10:36 113 H 08/21/23 10:34 108 H 17 99 08/21/23 10:04 36.7 C 120 H 18 169/100 H 97 O2 Del Method 08/21/23 15:23 08/21/23 15:07 08/21/23 14:44 Room Air 08/21/23 14:05 08/21/23 13:00 Room Air 08/21/23 12:00 Room Air 08/21/23 11:39 Room Air 08/21/23 11:05 Room Air 08/21/23 10:36 08/21/23 10:34 08/21/23 10:04 Room Air Laboratory Results Laboratory Results WBC 9.33 K/ul (4.8-10.8) 08/21/23 10:15 RBC 5.35 M/uL (4.20-5.40) 08/21/23 10:15 Hgb 16.2 g/dl (12.0-16.0) H 08/21/23 10:15 Hct 45.9 % (37.0-47.0) 08/21/23 10:15 MCV 85.8 fL (80.0-100.0) 08/21/23 10:15 MCH 30.3 pg (25.0-34.0) 08/21/23 10:15 MCHC 35.3 g/dL (32.0-36.0) 08/21/23 10:15 RDW Std Deviation 39.9 fL (36.4-46.3) 08/21/23 10:15 RDW Coeff of Wander 13.0 % (11.5-14.5) 08/21/23 10:15 Plt Count 189 K/uL (130-400) 08/21/23 10:15 MPV 10.5 fL (9.4-12.4) 08/21/23 10:15 Immature Gran % (Auto) 0.6 % 08/21/23 10:15 Neut % (Auto) 69.5 % 08/21/23 10:15 Lymph % (Auto) 19.6 % 08/21/23 10:15 Falls % (Auto) 9.2 % 08/21/23 10:15 Eos % (Auto) 0.8 % 08/21/23 10:15 Baso % (Auto) 0.3 % 08/21/23 10:15 Neut # (Auto) 6.48 K/uL (1.40-6.50) 08/21/23 10:15 Lymph # (Auto) 1.83 K/uL (1.20-3.40) 08/21/23 10:15 Falls # (Auto) 0.86 K/uL (0.11-0.59) H 08/21/23 10:15 Eos # (Auto) 0.07 K/uL (0.00-0.50) 08/21/23 10:15 Baso # (Auto) 0.03 K/uL (0.00-0.20) 08/21/23 10:15 Immature Gran # (Auto) 0.06 K/uL (0.01-0.20) 08/21/23 10:15 PT 11.1 Seconds (9.0-12.0) 08/21/23 10:15 INR 1.0 (0.9-1.1) 08/21/23 10:15 APTT 27 Seconds (21-31) 08/21/23 10:15 PTT Ratio 1.0 08/21/23 10:15 Sodium 138 mmol/L (136-145) 08/21/23 10:15 Potassium 3.5 mmol/L (3.5-5.1) 08/21/23 10:15 Chloride 106 mmol/L (98-107) 08/21/23 10:15 Carbon Dioxide 21 mmol/L (21-32) 08/21/23 10:15 Anion Gap 11 (3-11) 08/21/23 10:15 BUN 14 mg/dl (6-23) 08/21/23 10:15 Creatinine 0.67 mg/dl (0.6-1.2) 08/21/23 10:15 Est Cr Clr Drug Dosing 53.6 ml/min 08/21/23 10:15 Est GFR ( Amer) 92.2 ml/min 08/21/23 10:15 Est GFR (Non-Af Amer) 79.6 ml/min 08/21/23 10:15 BUN/Creatinine Ratio 20.9 (10-20) H 08/21/23 10:15 Glucose 124 mg/dl (70-99(Fasting)) H 08/21/23 10:15 POC Glucose 90 mg/dl (70-99) 08/21/23 15:05 Calcium 9.6 mg/dl (8.6-10.3) 08/21/23 10:15 Total Bilirubin 0.9 mg/dl (0.2-1.0) 08/21/23 10:15 AST 34 U/L (13-39) 08/21/23 10:15 ALT 27 U/L (7-52) 08/21/23 10:15 Alkaline Phosphatase 62 U/L (34-104) 08/21/23 10:15 Total Protein 6.5 gm/dl (6.0-8.3) 08/21/23 10:15 Albumin 3.8 gm/dl (3.4-5.0) 08/21/23 10:15 Globulin 2.7 gm/dl (2.5-4.0) 08/21/23 10:15 Albumin/Globulin Ratio 1.4 (0.9-2) 08/21/23 10:15 Urine Color Yellow 08/21/23 11:35 Urine Appearance Clear (Clear) 08/21/23 11:35 Urine pH 7.5 (4.5-7.5) 08/21/23 11:35 Ur Specific [place] 1.008 (1.000-1.030) 08/21/23 11:35 Urine Protein Negative (Negative) 08/21/23 11:35 Urine Glucose (UA) Negative (Negative) 08/21/23 11:35 Urine Ketones Negative (Negative) 08/21/23 11:35 Urine Blood Negative (Negative) 08/21/23 11:35 Urine Nitrite Negative (Negative) 08/21/23 11:35 Urine Bilirubin Negative (Negative) 08/21/23 11:35 Urine Urobilinogen Negative (Negative) 08/21/23 11:35 Ur Leukocyte Esterase Negative (Negative) 08/21/23 11:35 Impressions Hip/Pelvis X-Ray 08/21/23 10:07 XR hip RT 2V w pelvis CLINICAL HISTORY: Fall. COMPARISON: Right hip radiographs January 27, 2021. FINDINGS: There is a displaced subcapital right femoral neck fracture. This fracture is age indeterminate but new since radiographs of December 28, 2020. Apparent resorption of a portion of the right femoral neck. Severe right hip osteoarthritis is noted with marked joint space narrowing with subchondral sclerosis and cystic change. No additional fractures are identified on this exam. IMPRESSION: 1. Displaced subcapital right femoral neck fracture. This fracture is age indeterminate. 2. Severe right hip osteoarthritis. Marked right hip joint space narrowing with subchondral sclerosis and flattening of the right femoral head with remodeling of the acetabulum. ACT 112: Negative or not required by law. Electronically signed by: Haresh Anderson M.D. 08/21/2023 11:[address] 08/21/23 10:08 CT OF THE HEAD WITHOUT CONTRAST CLINICAL HISTORY: fall on thinners COMPARISON STUDY: Head CT May 17, 2022. CT DOSE: 1094.1 mGy.cm TECHNIQUE: Helical axial images of the head were obtained without IV contrast. Automated exposure control was utilized for the study. A dose lowering technique was utilized adhering to the principles of ALARA. FINDINGS: No acute intracranial hemorrhage, midline shift or mass effect is present. The ventricular system is stable. White matter hypodensities are similar to prior exam and favor small vessel disease. The basal cisterns are patent. No extra-axial collections are present. There are no findings to suggest acute dural sinus thrombosis or acute territorial infarct. No significant calvarial abnormalities are present. Visualized portions of the sinuses and mastoid air cells are clear. IMPRESSION: 1. No acute intracranial findings. 2. No calvarial fractures. ACT 112: Negative or not required by law. Electronically signed by: Haresh Anderson M.D. 08/21/2023 11:17 AM Chest X-Ray 08/21/23 11:24 XR chest 1V not portable HISTORY: preop COMPARISON: Chest 03/15/2018. FINDINGS: No pneumothorax. No pleural effusions. The lungs are clear. The heart remains borderline enlarged. No focal lung consolidations to suggest a pneumonia. No evidence for pulmonary edema. There are old, healed left-sided rib fractures. Prior cholecystectomy. There is mild elevation of the right hemidiaphragm. IMPRESSION: No acute process. ACT 112: Negative or not required by law. Electronically signed by: Scott Cortes M.D. 08/21/2023 11:51 AM
--- NOTE | 2023-08-21 16:19 | Electrocardiogram Report ---
Test Reason : Blood Pressure : / mmHG Vent. Rate : 103 BPM Atrial Rate : 000 BPM P-R Int : 000 ms QRS Dur : 112 ms QT Int : 366 ms P-R-T Axes : 000 129 -19 degrees QTc Int : 479 ms Atrial fibrillation with rapid ventricular response Right bundle branch block Left posterior fascicular block Bifascicular block Inferior infarct , age undetermined Abnormal ECG When compared with ECG of 17-MAY-2022 16:14, Left posterior fascicular block is now Present Inferior infarct is now Present Confirmed by Robin Saldana ([id number]) on 08/21/2023 4:19:19 PM Referred By: REFERRED SELF Confirmed By:Robin Saldana
[2023-08-21] MEDS: INSULIN ASPART PER UNIT CHARGE SC SCH (17:48)
[2023-08-21] MEDS: MoRPHine SULFATE 2 MG/ML CARP IV PRN (20:39)
[2023-08-21] MEDS ORDERED: Nursing to Pharmacy Communication SCH (21:15)
[2023-08-22] MEDS: INSULIN ASPART PER UNIT CHARGE SC SCH ×2 (00:33→18:29)
[2023-08-22] MEDS: LEVOTHYROXINE SODIUM 50 MCG TABLET PO SCH (06:02)
--- NOTE | 2023-08-22 06:41 | Orthopedic Progress Note ---
Date of Service August 22, 2023 Assessment & Plan (1) Displaced fracture of right femoral neck: She has a right femoral neck fracture, with underlying advanced hip arthritis. She has had intraarticular hip injections. Her esr and crp are normal. Discussed plan with Kathie, specifically total hip arthroplasty. Procedure explained including risks, benefits, and alternatives to surgery. Consent obtained. I did call her daughter and left a message, will try calling again this morning. She is npo. Eliquis on hold. Subjective . Kathie is a 88 year old patient admitted yesterday with a displaced femoral neck fracture of the right hip. She has a history of hip arthritis, treating with intraarticular injections, with the most recent injection on 13 days ago. She fell yesterday and xrays showed a displaced hip fracture. She complains of some numbness in the leg. Review of Systems All systems reviewed & are unremarkable except as noted in HPI & below. Physical Exam .alert and oriented. NAD Right leg: shortened and externally rotated. Able to dorsiflex and plantarflex. Sensation appears intact to touch. Results & Data Results & Data Laboratory Results . Diagnostic Findings . PG Care Time/CCT Total # of Minutes Spent Total Time Spent with Patient: Total time spent is greater than 50% in coordination of care (as documented) at patient's floor/unit and/or counseling patient: Coding Level of Care Code 63049 SUB INP/OBS CARE MIN Diagnoses Displaced fracture of right femoral neck S72.001A
--- NOTE | 2023-08-22 06:50 | Hospitalist Progress Note ---
Date of Service August 22, 2023 Assessment & Plan (1) Displaced fracture of right femoral neck: Plan: Patient sustained a mechanical ground-level fall on the morning of 08/20 Right hip x-ray on arrival revealed displaced subcapital right femoral neck fracture CT revealed no acute findings No signs of active bleeding on clinical exam; Hgb 16.2 on admission-> 15 pre-op on 08/21 Hold Eliquis (patient did not take the morning of 08/20; last taken the evening of 08/19) Acetaminophen IV q8h as needed for pain 1-3 Morphine 1-2mg IV q4h as needed for breakthrough pain Orthopedic surgery consulted Plan is to go to the OR on 08/21 (2) Atrial fibrillation: Plan: Continue metoprolol, digoxin Digoxin level pending (3) Hypertension: Plan: Hold valsartan pre-op, plan to restart when appropriate post-op (4) 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 Pan at [facility] [place] Hx of presumed ischemic cardiomyopathy with an EF in the range of 25% with an LAD wall motion abnormality in 03/2018 Echo in 05/2018 with EF at 45% (7) H/O healed fragility fracture: Plan: - concern for osteoporosis given hip fracture - check vit D; likely needs vit d/calcium supplementation - DEXA as an OP Plan DNR/DNI T2DM diet; n.p.o. pending surgery VTE PPx: Hold Eliquis for now in the setting of acute trauma; mechanical DVT PPx per orthopedics Admission and Anticipated Discharge Date Admission Date: August 21, 2023 Supervising Physician Co-Signing Physician Notes I personally examined the patient and verified all armendariz points of history and exam, discussed case, and agree with decision making with Dr Barker Seen postop. No meaningful HPI or review of systems from patient as she is still sedated, but nursing notes no problems and she appears to be doing well. Vitals noted, in general she is resting comfortably does not appear to be in any distress. Breathing unlabored lungs are clear without rales rhonchi or wheezes. Heart is distant but regular. No focal neurodeficits. Presumed osteoporotic hip fracturestable postop. PT/OT eval and treat. Pain control. Likely to need rehab. DVT prophylaxisper orthopedics. Otherwise as above. Subjective Resting comfortably. No acute complaints. Anticipating surgery later today. Review of Systems Review of Systems: As per above Physical Exam Physical Exam: Constitutional: well-appearing, no acute distress HEENT: NCAT, no conjunctival injection CV: regular rhythm, no murmur appreciated, extremities well-perfused, no LE edema Resp: CTABL, no wheezes/rales/rhonchi appreciated, no increased work of breathing GI: soft, nondistended, nontender, BS normoactive MSK: no gross deformities appreciated Skin: warm, dry, no rash appreciated Neuro: alert, oriented, no focal neurologic deficit appreciated Results & Data Results & Data Vital Signs (Past 12 Hours) Vital Signs Temp Pulse Pulse Resp BP Pulse Ox O2 Del Method 08/22/23 04:14 37.1 C 82 20 174/106 H 97 Room Air 08/22/23 00:12 36.8 C 91 H 20 164/93 H 93 Room Air 08/21/23 22:05 76 08/21/23 20:00 Room Air 08/21/23 19:57 36.5 C 73 20 175/110 H 96 Room Air Resident Activity Tracking Resident Involvement: Resident Care Provided Care Provided: Adult Hospital Medicine (2) Atrial fibrillation Atrial fibrillation type: longstanding persistent Qualified Code(s): I48.11 - Longstanding persistent atrial fibrillation (3) Hypertension Hypertension type: essential hypertension Qualified Code(s): I10 - Essential (primary) hypertension
--- NOTE | 2023-08-22 07:29 | Anesthesiology Consultation ---
Date of Service August 22, 2023 Assessment & Plan (1) Encounter for pre-operative examination: Chart Review Chart Review: Pending: Refer to Additional Notes / Consult section and Patient NOT seen in Pre Admission Testing Consults Requested cardiac cardiac consult pending Additional Notes last eliquis dose evening of 08/19 History Surgery Operation Date: 08/22/23 08:50 Proposed Procedures p Right Cemented Total Hip Arthroplasty - Alli Begum MD Height/Weight Height: 5 ft 1 in Weight: 66 kg Allergies Allergy/AdvReac Type Severity Reaction Status Date / Time latex Allergy Severe swelling Verified 05/08/23 15:25 of lips codeine AdvReac Intermediate GI SYMPTOMS Verified 05/08/23 15:25 atorvastatin AdvReac Unknown unknown Verified 05/08/23 15:25 metronidazole AdvReac Unknown unknown Verified 05/08/23 15:25 procaine AdvReac Unknown unknown Verified 05/08/23 15:25 Medications Home Medications Medication Instructions Recorded Confirmed Last Taken multivitamin 1 tab PO QPM 01/07/18 08/21/23 02/11/18 apixaban 5 mg tablet 5 mg PO BID 08/29/18 08/21/23 Unknown diaper,brief,adult,disposable #32 ea 10/08/18 05/08/23 Unknown diaper,brief,adult,disposable #32 ea 04/15/19 05/08/23 Unknown flash glucose scanning reader 06/02/19 05/08/23 Unknown (FreeStyle [place]aphne 10 Day [place]) flash glucose sensor (FreeStyle #1 ea 07/25/21 05/08/23 Unknown Daphne 2 Sensor kit) furosemide 40 mg tablet 40 mg PO UD 07/25/21 08/21/23 Unknown sacubitril 24 mg-valsartan 26 mg 1 tab PO BID 07/25/21 08/21/23 Unknown tablet (Entresto) fenofibrate nanocrystallized 145 145 mg PO DAILY 05/17/22 08/21/23 Unknown mg tablet metoprolol succinate 100 mg 100 mg PO UD 05/17/22 08/21/23 Unknown tablet,extended release 24 hr metoprolol succinate 25 mg 25 mg PO UD 05/17/22 08/21/23 Unknown tablet,extended release 24 hr Bedside Commode #1 ea 08/22/22 05/08/23 Unknown flash glucose sensor (FreeStyle #1 ea 04/04/23 05/08/23 Unknown Daphne 14 Day Sensor kit) glimepiride 2 mg tablet 2 mg PO DAILY #90 tabs 04/04/23 08/21/23 Unknown dapagliflozin propanediol 5 mg 5 mg PO DAILY #90 tabs 05/08/23 08/21/23 Unknown tablet (Farxiga) pravastatin 80 mg tablet 80 mg PO DAILY #90 tabs 05/16/23 08/21/23 Unknown digoxin 125 mcg (0.125 mg) tablet 125 mcg PO QAM #90 tabs 06/04/23 08/21/23 Unknown levothyroxine 50 mcg tablet 0 mcg PO DAILY 08/21/23 08/21/23 Unknown (Synthroid) Active Medications Generic Name Dose Route Start Last Admin Trade Name Freq PRN Reason Stop Dose Admin Lactated Ringer's 1,000 mls @ 110 mls/hr 08/21/23 13:00 08/21/23 22:37 Lr IV 08/22/23 16:16 110 mls/hr .Q9H6M TRISHA Administration Insulin Aspart 0 units 08/22/23 00:00 08/22/23 06:01 Insulin Aspart Per Unit Charge SC 09/21/23 00:00 Not Given Q6 TRISHA Levothyroxine Sodium 50 mcg 08/22/23 06:30 08/22/23 06:02 Levothyroxine Sodium 50 Mcg Tablet PO 09/21/23 06:29 50 mcg DAILYBB TRISHA Administration Morphine Sulfate 1 mg 08/21/23 13:08/21/23 20:39 Morphine Sulfate 2 Mg/Ml Carp IV 09/04/23 13:25 1 mg Q4H PRN Administration Moderate Pain (4,5,6) on NRS Morphine Sulfate 2 mg 08/21/23 13:26 08/22/23 06:23 Morphine Sulfate 4 Mg/Ml 1 Ml Carp\Vial IV 09/04/23 13:25 2 mg Q4H PRN Administration Severe Pain (7,8,9,10) on NRS Past Medical History Medical History Meningioma Diabetes type 2, uncontrolled CHF (congestive heart failure) Atrial fibrillation Nausea and vomiting after administration of anesthetic agent Osteoarthritis History of gastric ulcer On anticoagulant therapy Deep vein thrombosis Hyperlipidemia Hypertension Asthma inhaler prn Past Family History Family History Father Family history of diabetes mellitus Cardiovascular disease Myocardial infarction Sister Family hx of colon cancer Colorectal cancer Mother Hypertension Brother Cancer leukemia Denies family history of Ovarian cancer Prostate cancer Breast cancer Past Surgical History Surgical History Hx of dilation and curettage History of neck surgery to repair torticollis--normal ROM History of section History of esophagogastroduodenoscopy (EGD) History of cholecystectomy History of appendectomy History of tooth extraction wisdom teeth History of right cataract extraction Social History Smoking Status: Never smoker tobacco type: cigarettes Do You Dip or Chew Tobacco: No Hx Alcohol Use: No Hx Substance Use: No substance use type: does not use Physical Exam Vital Signs Last Vital Signs Temp 98.8 F 08/22/23 04:14 Pulse 82 08/22/23 04:14 Resp 20 08/22/23 04:14 BP 174/106 H 08/22/23 04:14 Pulse Ox 97 08/22/23 04:14 O2 Del Method Room Air 08/22/23 04:14 Testing Laboratory Results 08/21/23 10:15 08/21/23 10:15 PT 11.1 Seconds (9.0-12.0) 08/21/23 10:15 INR 1.0 (0.9-1.1) 08/21/23 10:15 APTT 27 Seconds (21-31) 08/21/23 10:15 Urine Color Yellow 08/21/23 11:35 Urine Appearance Clear (Clear) 08/21/23 11:35 Urine pH 7.5 (4.5-7.5) 08/21/23 11:35 Ur Specific [place] 1.008 (1.000-1.030) 08/21/23 11:35 Urine Protein Negative (Negative) 08/21/23 11:35 Urine Glucose (UA) Negative (Negative) 08/21/23 11:35 Urine Ketones Negative (Negative) 08/21/23 11:35 Urine Nitrite Negative (Negative) 08/21/23 11:35 Ur Leukocyte Esterase Negative (Negative) 08/21/23 11:35 Blood Type B Negative 08/21/23 20:55 Antibody Screen NEGATIVE 08/21/23 20:55 08/22/23 08/22/23 05:59 00:26 POC Glucose 96 86 Electrocardiogram Date: 08/21/23 Findings: + AFIB @ and + RBBB Chest X-Ray Date: 08/21/23 Findings: + NAD Echocardiogram Per last cardiology note: echo 05/2018: EF of 45% with mild global hypokinesis
[2023-08-22 07:39] LABS: Basophils # (auto) 0.03 K/uL (0.00-0.20); Basophils % (auto) 0.4 %; Eosinophils # (auto) 0.07 K/uL (0.00-0.50); Hematocrit (blood only) 43.2 % (37.0-47.0); Immature Granulocytes # (auto) 0.02 K/uL (0.01-0.20); Immature Granulocytes % (auto) 0.3 %; Lymphocytes # (auto) 1.95 K/uL (1.20-3.40); Lymphocytes % (auto) 26.9 %; Mean Corpuscular Hemoglobin 30.2 pg (25.0-34.0); Mean Corpuscular Hgb Conc 34.7 g/dL (32.0-36.0); Mean Corpuscular Volume 87.1 fL (80.0-100.0); Mean Platelet Volume 10.3 fL (9.4-12.4); Monocytes # (auto) 0.64 K/uL (0.11-0.59); Monocytes % (auto) 8.8 %; Neutrophils # (auto) 4.55 K/uL (1.40-6.50); Neutrophils % (auto) 62.6 %; Platelet Count 175 K/uL (130-400); RDW Coefficient of Variation 12.8 % (11.5-14.5); RDW Standard Deviation 40.6 fL (36.4-46.3); Red Blood Count 4.96 M/uL (4.20-5.40); White Blood Count 7.26 K/ul (4.8-10.8)
[2023-08-22 07:57] LABS: BUN Creatinine Ratio 16.1 (10-20); Calcium 9.1 mg/dl (8.6-10.3); Creatinine Clr Calc Pharmacy 62.7 ml/min; Est GFR (African American) 97.9 ml/min; Est GFR (Non-African American) 84.4 ml/min; Potassium 3.6 mmol/L (3.5-5.1)
[2023-08-22] MEDS: METOPROLOL SUCC 25MG EXT REL TAB PO SCH (08:03)
[2023-08-22] MEDS: METOPROLOL SUCC 50MG EXT REL TAB PO SCH (08:04)
[2023-08-22] MEDS: FUROSEMIDE 40 MG TAB PO SCH (08:04)
[2023-08-22] MEDS: PRAVASTATIN SOD 40 MG TAB PO SCH (08:04)
[2023-08-22] MEDS: FENOFIBRATE NANOCRYSTALLIZED 145 MG TABLET PO SCH (08:04)
--- NOTE | 2023-08-22 09:05 | Cardiology Consultation ---
Date of Consultation August 22, 2023 History of Present Illness Reason for Consultation: Preop evaluation prior to hip replacement Attending Physician: Luigi Schmidt DO History of Present Illness This a very pleasant 88-year-old female who has noticed numbness in her leg and has had difficulty ambulating. She ultimately had a fall and now has a hip fracture. She denies any chest pain or chest pressure. She is not short of breath talking in sentences. She denies any lightheadedness or dizziness. She has no palpitations or fluttering. She does note that she gets swelling in her legs throughout the day which is usually improved in the morning. She has had no recent bleeding or bruising. She is anxious here in the hospital and is in a fair amount of discomfort withou t significant improvement with morphine. Allergies Allergy/AdvReac Type Severity Reaction Status Date / Time latex Allergy Severe swelling Verified 05/08/23 15:25 of lips codeine AdvReac Intermediate GI SYMPTOMS Verified 05/08/23 15:25 atorvastatin AdvReac Unknown unknown Verified 05/08/23 15:25 metronidazole AdvReac Unknown unknown Verified 05/08/23 15:25 procaine AdvReac Unknown unknown Verified 05/08/23 15:25 Home Medications Medication Instructions Recorded Confirmed Type multivitamin 1 tab PO QPM 01/07/18 08/21/23 History apixaban 5 mg tablet 5 mg PO BID 08/29/18 08/21/23 History diaper,brief,adult,disposable #32 ea 10/08/18 05/08/23 Rx diaper,brief,adult,disposable #32 ea 04/15/19 05/08/23 Rx flash glucose scanning reader 06/02/19 05/08/23 History (FreeStyle Daphne 10 Day Thelma) flash glucose sensor (FreeStyle #1 ea 07/25/21 05/08/23 Rx Daphne 2 Sensor kit) furosemide 40 mg tablet 40 mg PO UD 07/25/21 08/21/23 History sacubitril 24 mg-valsartan 26 mg 1 tab PO BID 07/25/21 08/21/23 History tablet (Entresto) fenofibrate nanocrystallized 145 145 mg PO DAILY 05/17/22 08/21/23 History mg tablet metoprolol succinate 100 mg 100 mg PO UD 05/17/22 08/21/23 History tablet,extended release 24 hr metoprolol succinate 25 mg 25 mg PO UD 05/17/22 08/21/23 History tablet,extended release 24 hr Bedside Commode #1 ea 08/22/22 05/08/23 Rx flash glucose sensor (FreeStyle #1 ea 04/04/23 05/08/23 Rx Daphne 14 Day Sensor kit) glimepiride 2 mg tablet 2 mg PO DAILY #90 tabs 04/04/23 08/21/23 Rx dapagliflozin propanediol 5 mg 5 mg PO DAILY #90 tabs 05/08/23 08/21/23 Rx tablet (Farxiga) pravastatin 80 mg tablet 80 mg PO DAILY #90 tabs 05/16/23 08/21/23 Rx digoxin 125 mcg (0.125 mg) tablet 125 mcg PO QAM #90 tabs 06/04/23 08/21/23 Rx levothyroxine 50 mcg tablet 0 mcg PO DAILY 08/21/23 08/21/23 History (Synthroid) Patient History Medical History Meningioma Diabetes type 2, uncontrolled CHF (congestive heart failure) Atrial fibrillation Nausea and vomiting after administration of anesthetic agent Osteoarthritis History of gastric ulcer On anticoagulant therapy Deep vein thrombosis Hyperlipidemia Hypertension Asthma inhaler prn Surgical History Hx of dilation and curettage History of neck surgery to repair torticollis--normal ROM History of section History of esophagogastroduodenoscopy (EGD) History of cholecystectomy History of appendectomy History of tooth extraction wisdom teeth History of right cataract extraction Family History Father Family history of diabetes mellitus Cardiovascular disease Myocardial infarction Sister Family hx of colon cancer Colorectal cancer Mother Hypertension Brother Cancer leukemia Denies family history of Ovarian cancer Prostate cancer Breast cancer Social History Smoking Status: Never smoker Second Hand Exposure: No; Do You Dip or Chew Tobacco: No; Hx Alcohol Use: No Hx Substance Use: No Preferred Language: Northern Irish Communication Ability: Effective Visual Impairment: No Limitations Hearing Ability: Normal 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 Beliefs That Will Affect Care: None marital status: Single Current Living Situation: Alone current occupational status: retired How many Children do You have: 1 Feels Safe at Home: Yes Childhood Exposure to Second-Hand Smoke: Yes Diet: diabetic caffeine: Yes during the past year weight has: remained stable Dental Care, Regularly: No Physical Activity Frequency: Does not Exercise Seatbelt Use: always Sunscreen Use: No Assistive Devices: Glasses Results & Data Vital Signs (Past 12 Hours) Vital Signs Temp Pulse Pulse Resp BP Pulse Ox O2 Del Method 08/22/23 07:58 Room Air 08/22/23 07:17 36.6 C 79 15 181/86 H 95 Room Air 08/22/23 04:14 37.1 C 82 20 174/106 H 97 Room Air 08/22/23 00:12 36.8 C 91 H 20 164/93 H 93 Room Air 08/21/23 22:05 76 Past medical history: 1. Chronic atrial fibrillation 2. History of a presumed ischemic cardiomyopathy with an ejection fraction in the range of 25% with an LAD wall motion abnormality March 2018 3. Recent echocardiogram April 2022 with normal LV function and no wall motion abnormalities with at least type II diastolic dysfunction, mild RV dysfunction, left atrial enlargement, mild to moderate mitral and tricuspid regurgitation 4. Chronic right bundle branch block 5. Hypertension 6. History of chronic systolic heart failure with an acute exacerbation in 2017 but no recurrent admissions since then 7. History of severe obstructive sleep apnea with significant hypoxemia in tolerant of CPAP due to claustrophobia; wearing O2 at night 8. History of outpatient anticoagulation with Eliquis She is awake alert and oriented x 3 she is in a moderate degree of discomfort HEENT: 2+ carotid upstrokes Lungs: Clear to auscultation bilaterally no rales rhonchi or wheezing Heart: Irregular rate and rhythm no appreciable murmurs Abdomen: Soft nontender distended positive bowel sounds Extremities: No clubbing cyanosis or edema Psychiatric her affect appeared appropriateImpressions: 1. Preoperative evaluation prior to hip replacement status post fall and fracture 2. Chronic atrial fibrillation 3. History of cardiomyopathy with resolution based on her echocardiogram of April 2022 4. Chronic diastolic heart failure 5. Chronic anticoagulation with Eliquis as an outpatient 6. Hypertension As I discussed with Kathie she needs to have this surgery if she wants to walk again and undergo rehabilitation and improve her quality of life as well as reduce her pain. She is not complaining of any active heart failure or anginal symptoms currently. Her functional capacity at home is relatively low. Given the fact she needs surgery I think she can proceed at intermediate risk. I believe her risk of cardiac complications is the range of 4 to 5%. This includes heart attack, dying from cardiac causes, arrhythmia, heart failure and stroke while off anticoagulation and atrial fibrillation. She has not taken in a anticoagulation since August 19. It should be out of her system within 48 hours. Her anticoagulation should be restarted after surgery when it is considered safe from a bleeding standpoint understanding she will be fully anticoagulated within 2 hours of starting Eliquis. I will add amlodipine just for now to help with her blood pressure control. Is likely elevated along with her heart rate due to pain and anxiety. If necessary in the OR she can be given IV beta-blockers either with esmolol or Lopressor to control her rate. Will continue to follow her with you. I would be judicious with her fluids in the perioperative period especially in light of her known at least type II if not type III diastolic dysfunction. She may need additional IV diuretics postoperatively.
--- NOTE | 2023-08-22 10:48 | History & Physical Bridge Note ---
Date of Service August 22, 2023 History & Physical Bridge Note I have examined the patient, reviewed the History & Physical and in the interval since the performance of the History & Physical I have noted the following changes of clinical significance: no changes noted
[2023-08-22] MEDS: amLODIPine BESYLATE 5 MG TAB PO SCH (11:16)
[2023-08-22] MEDS: LACTATED RINGER'S 1,000 ML IV SCH (12:21)
[2023-08-22] MEDS ORDERED: fentaNYL citrate PF 100 MCG/2 ML VIAL ONE ×3 (12:34→15:13)
[2023-08-22] MEDS ORDERED: ROCURONIUM BROMIDE 10 MG/ML 5 ML VIAL IV ONE (12:34)
[2023-08-22] MEDS ORDERED: ePHEDrine sulfate 50 MG/ML AMP ONE (12:34)
[2023-08-22] MEDS ORDERED: PROPOFOL IV EMULSION 10 MG/ML 20 ML VIAL IV ONE (12:34)
[2023-08-22] MEDS ORDERED: LIDOCAINE 2% 2 ML VIAL/AMP(20MG/ML) INFIL ONE (12:34)
[2023-08-22] MEDS ORDERED: PHENYLEPHRINE HCL 10 MG/ML VIAL ONE (12:34)
[2023-08-22] MEDS ORDERED: ePHEDrine sulfate 50 MG/ML AMP IV PRN (12:44)
[2023-08-22] MEDS ORDERED: fentaNYL citrate PF 100 MCG/2 ML VIAL IV PRN (12:44)
[2023-08-22] MEDS ORDERED: ATROPINE SULFATE 0.1 MG/ML 10ML SYR IV PRN (12:44)
[2023-08-22] MEDS ORDERED: ONDANSETRON INJ 2 MG/ML 2 ML VIAL IV PRN (12:44)
[2023-08-22] MEDS ORDERED: HYDROmorphone INJ 1 MG/ML SYRINGE IV PRN (12:44)
[2023-08-22] MEDS ORDERED: ETOMIDATE 2 MG/ML 20 ML VIAL IV ONE (13:23)
[2023-08-22] MEDS: ceFAZolin 2000MG 2,000 MG/15 ML SYR IV ONE (13:29)
[2023-08-22] MEDS ORDERED: ceFAZolin 330 MG/ML 1 GM VIAL ONE (13:29)
[2023-08-22] MEDS: TRANEXAMIC ACID / 0.7% NACL 1000MG/100ML BAG IV ONE (13:41)
[2023-08-22] MEDS: VANCOMYCIN HCL 1000MG/20ML VIAL ONE (14:03)
[2023-08-22] MEDS ORDERED: DEXAMETHASONE SOD INJ 4 MG/ML VIAL ONE (14:53)
[2023-08-22] MEDS ORDERED: ONDANSETRON INJ 2 MG/ML 2 ML VIAL ONE (14:53)
[2023-08-22] MEDS ORDERED: SUGAMMADEX SODIUM 200 MG/2 ML VIAL IV ONE (14:56)
[2023-08-22] MEDS: BUPIVACAINE/EPINEPHRINE 0.5% MPF 1:200,000 30 ML VIAL ONE (14:57)
--- NOTE | 2023-08-22 15:14 | Operative Report ---
PG Post Operative Report Pre & Post Diagnosis Operation Date: 08/22/23 08:50 Pre-Op Diagnosis: Displaced right Femoral Neck Fracture with severe underlying arthritis Post-Op Diagnosis: Displaced right Femoral Neck Fracture with severe underlying arthritis I identified the patient and participated in the time-out.: Yes Procedure Operation Date: 08/22/23 08:50 Actual Procedures p Right Total Hip Arthroplasty, Cemented(Right) - Alli Begum MD Surgeon Alli Begum MD Business Education Instructor Erick Juarez PA-C Estimated Blood Loss 150 Findings Consistent with Post-Op Diagnosis Operative findings volarly displaced femoral neck fracture. Patient had extensive hip arthritis and severe protrusio of the acetabulum. Diffuse osteopenia. Specimens Right femoral head sent for pathology. Anesthesia Type General Complications none Disposition Accompanied Patient To Recovery: No Indications Patient is an 88-year-old female with a severe known right hip arthritis. She been treated conservatively and really wanted to avoid surgery. She stained a fall while yesterday. She had acute onset of pain was unable to ambulate. Is brought to emergency room or where x-rays revealed displaced femoral neck fracture below the acetabular and hip arthritis disease. The patient has been admitted by the medicine service, medically optimized and elected proceed with total hip arthroplasty. Description of Procedure Operative implants consist of: 1. Biomet G7 size 48 mm acetabular shell. 2. 6.5 cancellous acetabular screws x 2. 3. Dual mobility metal liner. 4. DePuy Drew size 2 standard offset femoral stem with a distal centralizer. 5. +1.5/28 mm metal articular ball with a 44 mm bipolar liner. The patient was taken to the op room, identified, placed on the operating table in supine position. All contact areas were appropriately padded. IV antibiotics provided by anesthesia team. General anesthetic was implemented. The patient was then placed in the left lateral decubitus position. An axillary roll was placed. Distal Birkett position was used for positioning. The right hip and leg were then scrubbed with Hibiclens, prepped with ChloraPrep and draped in usual sterile fashion. A posterolateral approach to the right hip was then performed to a curvilinear incision centered over the greater trochanter. Sharp dissection carried through subcutaneous tissue down to level the IT band gluteal fascia. The IT band gluteal fascia incised longitudinally in line with skin incision. The underlying greater bursa was excised. The piriformis and external rotators along with the posterior hip joint capsule were then released from the posterior aspect of the hip as a single layer. Great care was taken throughout the procedure to protect the sciatic nerve at all times. The hip was internally rotated. The right neck was fractured so of the head that remained in the acetabulum. Femoral neck osteotomy cut was then made just at the base of the fracture site. The fracture did go almost all the way down to the base of the neck. The femoral neck was removed. The femur was retracted anteriorly. The femoral head was removed from the acetabulum. It was necrotic and very small. The acetabulum was exposed. It had an hourglass appearance to it. Attention was then drawn toward preparing the acetabulum. Sequential reaming the acetabular was then performed very carefully. The entrance to the acetabular was much smaller than the acetabulum itself. There was a severe protrusio so I could not really medially. I reamed up to a 47 ream er. I trialed this and this fit nicely. Therefore I reamed to a 48. Of note that even start with a 43 reamer I had to ream out some of the entrance to the acetabulum. We got down to a reasonable bleeding bone. I did not want to penetrate the medial wall. A 48 mm cup was then placed in about 40 degrees lateral opening and 20 degrees of anteversion. It was fixed with 2 screws. We got excellent purchase. A trial liner was placed. Attention drawn the femur. The proximal femur was entered with a cookie cutter followed by canal finder. I then broached up. I could need to get the #[address] down. We did trial this again a little bit proud and the +1.5 it seemed the recreate appropriate stability and leg length. It was still little tight in extension but I do is good to countersink the ureteral implant a little bit deeper. We elect to place these implants. All trial implants were removed. A dual mobility liner was placed. A small cement was restrictor was placed. The canal was irrigated. A double batch Palacos G cement was mixed with an additional gram of vancomycin as she recently had a steroid shot in this hip. I then injected this into the canal. A size 2 femoral stem was then placed. All extraneous cement was removed. Once the cement hardened a +1.5/28 mm articular ball was placed followed by 44 liner. The hip was located once again found to be stable. Attention drawn toward closing. The wound was injected with about 45 cc of half percent Marcaine with epinephrine. I irrigated the wound extensively. The posterior capsule was then repaired through drill holes in the posterior trochanter with #2 Tycron suture. The IT band gluteal fascia then closed in 1 PDS suture running fashion through subcutaneous tissues then closed with 2 layers of the deep layer #1 Vicryl suture and subcutaneous tissue with 2-0 Dexon suture in a buried interrupted fashion. Skin was closed skin philippe. Leg was then cleaned and dried and a sterile dressing with Xeroform, 4 fours, sterile ABD pads and foam tape was applied. The patient was then brought out of general anesthesia and transferred to the recovery room in stable condition. Patient tolerated procedure well and there are no complications. Erick Juarez, my physician producer assistant, was present for the entire procedure. His assistance was essential and required for appropriate patient positioning, prepping and draping, surgical exposure, performing the technical details of the operation, placement the implants, closure of the wound, and placement of the sterile bandage. I attest to the content of the Intraoperative Record and any orders documented therein. Any exceptions are noted below.
[2023-08-22] MEDS: PROMETHAZINE HCL 6.25 MG in SODIUM CHLORIDE 0.9% 50 ML IV PRN (15:51)
--- NOTE | 2023-08-22 16:17 | Anesthesiology Progress Note ---
Date of Service August 22, 2023 Anesthesia Post Procedure Vital Signs Vital Signs: Temp Pulse Pulse Pulse Resp BP BP 08/22/23 16:00 36.6 C 92 H 16 152/93 H 08/22/23 15:50 92 H 16 152/93 H 08/22/23 15:40 93 H 18 180/99 H 08/22/23 15:30 89 12 177/94 H 08/22/23 15:20 36.2 C L 84 18 159/104 H 08/22/23 12:03 36.7 C 68 20 156/100 H 08/22/23 11:13 36.6 C 76 15 167/97 H 08/22/23 07:58 08/22/23 07:30 80 08/22/23 07:17 36.6 C 79 15 181/86 H 08/22/23 04:14 37.1 C 82 20 174/106 H 08/22/23 00:12 36.8 C 91 H 20 164/93 H 08/21/23 22:05 76 08/21/23 20:00 08/21/23 19:57 36.5 C 73 20 175/110 H Pulse Ox O2 Del Method O2 Flow Rate 08/22/23 16:00 94 Room Air 08/22/23 15:50 94 Room Air 08/22/23 15:40 97 Oxymask 4 08/22/23 15:30 97 Oxymask 4 08/22/23 15:20 98 Oxymask 6 08/22/23 12:03 98 Room Air 08/22/23 11:13 96 Room Air 08/22/23 07:58 Room Air 08/22/23 07:30 08/22/23 07:17 95 Room Air 08/22/23 04:14 97 Room Air 08/22/23 00:12 93 Room Air 08/21/23 22:05 08/21/23 20:00 Room Air 08/21/23 19:57 96 Room Air Pain Intensity Right Hip: Pain Intensity: 6 Transfer of Care Handoff Completed per policy Notes Mental Status: alert / awake / arousable Patient Amnestic to Procedure: Yes Nausea / Vomiting: adequately controlled Pain: adequately controlled Airway Patency, RR, SpO2: stable & adequate BP & HR: stable & adequate Hydration State: stable & adequate Anesthetic Complications: no major complications apparent
--- NOTE | 2023-08-22 16:24 | XRay Report ---
AP AND CROSSTABLE LATERAL RIGHT HIP History: Right total hip arthroplasty. Degenerative arthritis. Postop. FINDINGS: The patient is status post a right total hip arthroplasty. The hardware is intact. No fract ure or dislocation. Skin philippe are in place. IMPRESSION: Right total hip arthroplasty. No evidence for hardware complication ACT 112: Negative or not required by law. Electronically signed by: Scott Cortes M.D. 08/22/2023 4:23 PM
[2023-08-22] MEDS: PROMETHAZINE HCL INJ 25 MG/ML 1 ML VIAL ONE (16:29)
[2023-08-22] MEDS: SODIUM CHLORIDE 0.9% 50 ML BAG ONE (16:29)
[2023-08-22] MEDS: FAMOTIDINE/PF 20 MG/2 ML VIAL IV ONE (16:29)
[2023-08-22] MEDS ORDERED: Nursing to Pharmacy Communication SCH (16:45)
[2023-08-22] MEDS: SODIUM CHLORIDE 0.9% 1,000 ML IV SCH (16:46)
[2023-08-22] MEDS: DIGOXIN 0.125 MG TAB PO SCH (16:52)
--- NOTE | 2023-08-22 17:57 | Billing Data ---
Date of Service August 22, 2023 Coding Level of Care Code 50487 SUB INP/OBS CARE
[2023-08-22] MEDS: ceFAZolin 1000MG 1,000 MG/7.5 ML SYR IV SCH (21:07)
[2023-08-23 06:21] LABS: Basophils # (auto) 0.03 K/uL (0.00-0.20); Basophils % (auto) 0.2 %; Hematocrit (blood only) 34.4 % (37.0-47.0); Hemoglobin 11.8 g/dl (12.0-16.0); Immature Granulocytes # (auto) 0.07 K/uL (0.01-0.20); Immature Granulocytes % (auto) 0.6 %; Lymphocytes # (auto) 1.92 K/uL (1.20-3.40); Lymphocytes % (auto) 15.4 %; Mean Corpuscular Hemoglobin 30.1 pg (25.0-34.0); Mean Corpuscular Hgb Conc 34.3 g/dL (32.0-36.0); Mean Corpuscular Volume 87.8 fL (80.0-100.0); Mean Platelet Volume 10.6 fL (9.4-12.4); Monocytes # (auto) 1.15 K/uL (0.11-0.59); Monocytes % (auto) 9.2 %; Neutrophils # (auto) 9.32 K/uL (1.40-6.50); Neutrophils % (auto) 74.6 %; Platelet Count 217 K/uL (130-400); RDW Coefficient of Variation 12.9 % (11.5-14.5); RDW Standard Deviation 41.1 fL (36.4-46.3); Red Blood Count 3.92 M/uL (4.20-5.40); White Blood Count 12.49 K/ul (4.8-10.8)
--- NOTE | 2023-08-23 06:37 | Hospitalist Progress Note ---
Date of Service August 23, 2023 Assessment & Plan (1) Displaced fracture of right femoral neck: Plan: Patient sustained a mechanical ground-level fall on the morning of 08/20 Right hip x-ray on arrival revealed displaced subcapital right femoral neck fracture CT revealed no acute findings Hold Eliquis (patient did not take the morning of 08/20; last taken the evening of 08/19)-> restart when per surgeon Acetaminophen IV q8h as needed for pain 1-3 Morphine 1-2mg IV q4h as needed for breakthrough pain Orthopedic surgery consulted S/p right total hip arthroplasty 08/21; post-op day 1 (2) Atrial fibrillation: Plan: Continue metoprolol, digoxin Digoxin level pending Eliquis currently held in the setting of recent surgery (3) Hypertension: Plan: Hold entresto pre-op, plan to restart when appropriate post-op (4) 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 Pan at [facility] [place] Hx of presumed ischemic cardiomyopathy with an EF in the range of 25% with an LAD wall motion abnormality in 03/2018 Echo in 05/2018 with EF at 45% (7) H/O healed fragility fracture: Plan: - concern for osteoporosis given hip fracture - Vit D= 15.7; plan for vitamin D repletion - DEXA as an OP Plan DNR/DNI T2DM diet VTE PPx: Hold Eliquis for now in the setting of acute trauma; mechanical DVT PPx per orthopedics Admission and Anticipated Discharge Date Admission Date: August 21, 2023 Supervising Physician Co-Signing Physician Notes I personally examined the patient and verified all armendariz points of history and exam, discussed case, and agree with decision making with Dr Barker patient seen just prior to her working with physical therapy. Nursing notes no problems. Vitals noted, in general she is resting comfortably does not appear to be in any distress. pleasantly confused but easy to redirect. breathing unlabored no accessory muscle use good effort. Skin without rashes pallor or icterus. Neuro without focal deficits. Presumed osteoporotic hip fracturestable postop. PT/OT eval and treat. Pain control. For rehab once bed available. Mild confusionprobably mild multifactorial delirium. Redirection, supportive care, reorientation. DVT prophylaxisper orthopedics. Otherwise as above. Subjective Post-op day 2 from right total hip arthroplasty. No events overnight. Pain well controlled this morning, comfortable. Review of Systems Review of Systems: As per above Physical Exam Physical Exam: Constitutional: well-appearing, no acute distress HEENT: NCAT, no conjunctival injection CV: regular rhythm, no murmur appreciated, extremities well-perfused, no LE edema Resp: CTABL, no wheezes/rales/rhonchi appreciated, no increased work of breathing GI: soft, nondistended, nontender, BS normoactive MSK: no gross deformities appreciated Skin: warm, dry, no rash appreciated Neuro: alert, oriented, no focal neurologic deficit appreciated Results & Data Results & Data Vital Signs (Past 12 Hours) Vital Signs Temp Pulse Pulse Resp BP BP Pulse Ox 08/23/23 04:33 36.8 C 92 H 20 103/69 94 08/22/23 23:42 36.7 C 83 20 108/63 96 08/22/23 23:32 36.3 C L 88 18 105/70 94 08/22/23 22:02 91 H 08/22/23 21:00 08/22/23 20:20 83 90/60 L 08/22/23 19:53 36.7 C 87 20 91/64 L 96 O2 Del Method 08/23/23 04:33 Room Air 08/22/23 23:42 Room Air 08/22/23 23:32 Room Air 08/22/23 22:02 08/22/23 21:00 Room Air 08/22/23 20:20 08/22/23 19:53 Room Air Resident Activity Tracking Resident Involvement: Resident Care Provided Care Provided: Adult Hospital Medicine (2) Atrial fibrillation Atrial fibrillation type: longstanding persistent Qualified Code(s): I48.11 - Longstanding persistent atrial fibrillation (3) Hypertension Hypertension type: essential hypertension Qualified Code(s): I10 - Essential (primary) hypertension
[2023-08-23 06:53] LABS: BUN Creatinine Ratio 17.3 (10-20); Calcium 8.4 mg/dl (8.6-10.3); Creatinine Clr Calc Pharmacy 33.8 ml/min; Est GFR (African American) 56.3 ml/min; Est GFR (Non-African American) 48.6 ml/min
[2023-08-23] MEDS: FUROSEMIDE 20 MG TAB PO SCH (08:42)
[2023-08-23] MEDS: CHOLECALCIFEROL 25 MCG (1000 UNITS) TAB PO SCH (09:35)
[2023-08-23] MEDS: ERGOCALCIFEROL 1250 MCG (50,000 UNITS) CAP PO ONE (09:35)
--- NOTE | 2023-08-23 11:04 | Surgery Progress Note ---
Date of Service August 23, 2023 Assessment & Plan (1) Status post total hip replacement, right: Plan: 88-year-old female now postop day 1 from a right hybrid total hip replacement done for fracture. She is doing okay. Having some moderate hip pain which is not unexpected. Hips located. She is neurologically intact. She looks medically stable. Plan: 1. DVT prophylaxis including thigh-high teds, SCDs, resume Eliquis 24 hours postop. Recommend that she start at a prophylactic dose of 2.5 mg twice a day for the first day and then back to regular dose postop day 2. 2. PT/OT. She can fully weight-bear on the right leg. She needs to be obeying hip precautions at all times. 3. Pain control she looks pretty comfortable today. She does report pain. Will have to be careful not to dose with too much in the way of narcotics to avoid confusion issues. 4. Disposition she is orthopedically okay for discharge anytime medically stable. I did see her back 2 to 3 weeks out from surgery date. Any orthopedic questions can be direct me at [phone]. (2) Displaced fracture of right femoral neck: Admission and Anticipated Discharge Date Admission Date: August 21, 2023 Subjective 88-year-old female now postop day 1 from a right hybrid total hip replacement done for fracture. She is doing okay. Still having some hip pain. No other real complaints. No chest pain or shortness of breath. Not feeling dizzy or lightheaded Physical Exam Physical Exam: Physical exam examination reveals a pleasant elderly female. Sitting up in her bedside chair and looks pretty comfortable this morning. Examination of the right hip and leg reveals the dressing be clean dry and intact. Thigh is soft and supple. Leg lengths appear equal. Hips located. She can dorsiflex and plantarflex her foot appropriately. She is neurologically intact. Results & Data Vital Signs (Past 12 Hours) Vital Signs Temp Pulse Pulse Resp BP BP Pulse Ox 08/23/23 09:08 08/23/23 07:49 36.8 C 104 H 18 114/73 93 08/23/23 07:30 86 08/23/23 04:33 36.8 C 92 H 20 103/69 94 08/22/23 23:42 36.7 C 83 20 108/63 96 08/22/23 23:32 36.3 C L 88 18 105/70 94 O2 Del Method 08/23/23 09:08 Room Air 08/23/23 07:49 Room Air 08/23/23 07:30 08/23/23 04:33 Room Air 08/22/23 23:42 Room Air 08/22/23 23:32 Room Air Laboratory Results Hemoglobin is 11.8. Hematocrit 34.4. Electrolytes are stable. PG Care Time/CCT Total # of Minutes Spent Total Time Spent with Patient: Total time spent is greater than 50% in coordination of care (as documented) at patient's floor/unit and/or counseling patient: Coding Level of Care Code 53692 Post Operative Follow-Up Diagnoses Status post total hip replacement, right Z96.641 Displaced fracture of right femoral neck S72.001A
--- NOTE | 2023-08-23 11:42 | Cardiology Progress Note ---
Date of Service August 23, 2023 Assessment & Plan (1) Status post total hip replacement, right: (2) Atrial fibrillation: Plan Past medical history: 1. Chronic atrial fibrillation 2. History of a presumed ischemic cardiomyopathy with an ejection fraction in the range of 25% with an LAD wall motion abnormality March 2018 3. Recent echocardiogram April 2022 with normal LV function and no wall motion abnormalities with at least type II diastolic dysfunction, mild RV dysfun ction, left atrial enlargement, mild to moderate mitral and tricuspid regurgitation 4. Chronic right bundle branch block 5. Hypertension 6. History of chronic systolic heart failure with an acute exacerbation in 2017 but no recurrent admissions since then 7. History of severe obstructive sleep apnea with significant hypoxemia intolerant of CPAP due to claustrophobia; wearing O2 at night 8. History of outpatient anticoagulation with Eliquis Ms. Noble had soft blood pressures last evening which have improved today. She appears to be finishing a liter of LR and I agree with discontinuation of fluids at this point. If her blood pressure are borderline I would recommend holding her furosemide before starting any fluids again. She did receive a dose of furosemide this morning. She appears euvolemic. The amlodipine started yesterday for hypertension has been discontinued. She should resume her Eliquis as soon as surgery feels it is safe from a bleeding standpoint. Her heart rates are mostly staying below 100. She is on metoprolol and digoxin for rate control. Good pain control should help keep her from becoming more tachycardic. Her kidney function is stable. Admission and Anticipated Discharge Date Admission Date: August 21, 2023 Subjective Ms. Noble is having some pain in her leg post op but is doing well overall. She is not having any shortness of breath or chest pain or pressure. No significant swelling. Her heart rate has been mildly tachycardic since surgery. Review of Systems Review of Systems: All systems reviewed & are unremarkable except as noted in HPI & below Physical Exam Constitutional: WD/WN, vitals as above Respiratory: normal respiratory effort, lungs clear to auscultation Cardiovascular: Rate/Rhythm: + abnormal rate and + abnormal rhythm Heart Sounds: normal S1 and normal S2; no murmur Results & Data Vital Signs (Past 12 Hours) Vital Signs Temp Pulse Pulse Resp BP Pulse Ox O2 Del Method 08/23/23 09:08 Room Air 08/23/23 07:49 36.8 C 104 H 18 114/73 93 Room Air 08/23/23 07:30 86 08/23/23 04:33 36.8 C 92 H 20 103/69 94 Room Air 08/22/23 23:42 36.7 C 83 20 108/63 96 Room Air (2) Atrial fibrillation Atrial fibrillation type: longstanding persistent Qualified Code(s): I48.11 - Longstanding persistent atrial fibrillation
--- NOTE | 2023-08-23 14:28 | Discharge Summary ---
Date of Service August 23, 2023 Admission HPI Per Admitting Provider Kathie is a pleasant 88-year-old female with PMH of HTN, HLD, asthma, DVT, gastric ulcer, atrial fibrillation (on apixaban), CHF, and T2DM. She presented via EMS after sustaining a ground-level mechanical fall on the morning of 08/20. Patient's daughter (Daphne) is present at the bedside and provides additional history. Patient lives alone in a senior apartment. She reports that she was trying to close her patio door slider, and her right leg gave out. She is currently on blood thinners. No head strike. No LOC. Patient fell onto her right hip and back. She notes that earlier in the week, she "turned weird" and may have injured her hip, as her right leg has been numb x 1 week with standing and walking. Patient ambulates with a walker chair at baseline. After her fall, she was unable to stand, and tried crawling across the floor. Luckily, building inspectors came by about 20 minutes later and helped her up and called an ambulance. Patient denies feeling dizzy prior to her fall, however she does note some lightheadedness with walking but not today. She believes she just lost her balance or her right leg gave out on her. Patient does receive steroid injections into her right hip for osteoarthritis, with the last injection being on 08/09/2023. She has been told that she will need a hip replacement for the past several years. At time of admission, she rates her right hip pain as a c onstant 6/10 pain. Worse with movements. No radiation to the lower back. No pain in her left hip. She notes that the right leg is numb. Patient did not take any pain medicine before coming in. The only medication she took this morning was her thyroid medicine; she has not had her Eliquis today, and believes she last took it the evening of 08/19. Patient denies smoking, tobacco use, and recent alcohol use. She does have a history of [place] in 2018; patient's daughter believes no stents were placed at that time; she is not currently on Plavix or aspirin. Patient is hypertensive at 186/118 at time of admission; vitals otherwise stable. ED course: Morphine sulfate 2 mg IV Acetaminophen 1000 mg IV ROS: Patient endorses R hip pain, right leg numbness and tingling, loss of appetite, and decreased urinary frequency (which patient attributes to not drinking enough fluids). Patient denies fever, chills, dizziness, lightheadedness, REDD, chest pain, chest palpitations, SOB, abdominal pain, N/V/D, change in urinary/bowel habits, blood in the urine or stool, or saddle anesthesia. Principal Diagnosis Right hip fracture Discharge Exam Constitutional: well-appearing, no acute distress HEENT: NCAT, no conjunctival injection CV: regular rhythm, no murmur appreciated, extremities well-perfused, no LE edema Resp: CTABL, no wheezes/rales/rhonchi appreciated, no increased work of breathing GI: soft, nondistended, nontender MSK: no gross deformities appreciated Skin: warm, dry, no rash appreciated Neuro: alert, oriented, no focal neurologic deficit appreciated Discharge Data Allergies Allergy/AdvReac Type Severity Reaction Status Date / Time latex Allergy Severe swelling Verified 08/22/23 11:53 of lips codeine AdvReac Intermediate GI SYMPTOMS Verified 08/22/23 11:53 atorvastatin AdvReac Unknown unknown Verified 08/22/23 11:53 metronidazole AdvReac Unknown unknown Verified 08/22/23 11:53 procaine AdvReac Unknown unknown Verified 08/22/23 11:53 Consultations 08/21/23 11:56 ED Decision to Admit Stat 08/21/23 12:54 Consult Cardiology Routine Consult Orthopedic Surgery Routine 08/21/23 16:53 Consult Orthopedic Surgery Routine Procedures Performed Operation Date: 08/22/23 08:50 Actual Procedures p Right Total Hip Arthroplasty, Cemented(Right) - Alli Begum MD Ordered Studies 08/21/23 10:08 CT head/brain wo con Stat Laboratory Results WBC 12.49 K/ul (4.8-10.8) H 08/23/23 05:44 RBC 3.92 M/uL (4.20-5.40) L 08/23/23 05:44 Hgb 11.8 g/dl (12.0-16.0) L D 08/23/23 05:44 Hct 34.4 % (37.0-47.0) L 08/23/23 05:44 MCV 87.8 fL (80.0-100.0) 08/23/23 05:44 MCH 30.1 pg (25.0-34.0) 08/23/23 05:44 MCHC 34.3 g/dL (32.0-36.0) 08/23/23 05:44 RDW Std Deviation 41.1 fL (36.4-46.3) 08/23/23 05:44 RDW Coeff of Wander 12.9 % (11.5-14.5) 08/23/23 05:44 Plt Count 217 K/uL (130-400) 08/23/23 05:44 MPV 10.6 fL (9.4-12.4) 08/23/23 05:44 Immature Gran % (Auto) 0.6 % 08/23/23 05:44 Neut % (Auto) 74.6 % 08/23/23 05:44 Lymph % (Auto) 15.4 % 08/23/23 05:44 Towns % (Auto) 9.2 % 08/23/23 05:44 Eos % (Auto) 0.0 % 08/23/23 05:44 Baso % (Auto) 0.2 % 08/23/23 05:44 Neut # (Auto) 9.32 K/uL (1.40-6.50) H 08/23/23 05:44 Lymph # (Auto) 1.92 K/uL (1.20-3.40) 08/23/23 05:44 Towns # (Auto) 1.15 K/uL (0.11-0.59) H 08/23/23 05:44 Eos # (Auto) 0.00 K/uL (0.00-0.50) 08/23/23 05:44 Baso # (Auto) 0.03 K/uL (0.00-0.20) 08/23/23 05:44 Immature Gran # (Auto) 0.07 K/uL (0.01-0.20) 08/23/23 05:44 ESR 13 mm/hr (0-30) 08/21/23 10:15 PT 11.1 Seconds (9.0-12.0) 08/21/23 10:15 INR 1.0 (0.9-1.1) 08/21/23 10:15 APTT 27 Seconds (21-31) 08/21/23 10:15 PTT Ratio 1.0 08/21/23 10:15 Sodium 139 mmol/L (136-145) 08/23/23 05:44 Potassium 4.0 mmol/L (3.5-5.1) 08/23/23 05:44 Chloride 104 mmol/L (98-107) 08/23/23 05:44 Carbon Dioxide 28 mmol/L (21-32) 08/23/23 05:44 Anion Gap 7 (3-11) 08/23/23 05:44 BUN 18 mg/dl (6-23) 08/23/23 05:44 Creatinine 1.04 mg/dl (0.6-1.2) D 08/23/23 05:44 Est Cr Clr Drug Dosing 33.8 ml/min 08/23/23 05:44 Est GFR ( Amer) 56.3 ml/min 08/23/23 05:44 Est GFR (Non-Af Amer) 48.6 ml/min 08/23/23 05:44 BUN/Creatinine Ratio 17.3 (10-20) 08/23/23 05:44 Glucose 147 mg/dl (70-99(Fasting)) H 08/23/23 05:44 POC Glucose 202 mg/dl (70-99) H 08/23/23 12:16 Calcium 8.4 mg/dl (8.6-10.3) L 08/23/23 05:44 Total Bilirubin 0.9 mg/dl (0.2-1.0) 08/21/23 10:15 AST 34 U/L (13-39) 08/21/23 10:15 ALT 27 U/L (7-52) 08/21/23 10:15 Alkaline Phosphatase 62 U/L (34-104) 08/21/23 10:15 C-Reactive Protein 0.87 mg/dl (0-0.5) H 08/21/23 14:28 Total Protein 6.5 gm/dl (6.0-8.3) 08/21/23 10:15 Albumin 3.8 gm/dl (3.4-5.0) 08/21/23 10:15 Globulin 2.7 gm/dl (2.5-4.0) 08/21/23 10:15 Albumin/Globulin Ratio 1.4 (0.9-2) 08/21/23 10:15 25-OH Vitamin D Total 15.7 ng/ml (30-100) L 08/23/23 05:44 Urine Color Yellow 08/21/23 11:35 Urine Appearance Clear (Clear) 08/21/23 11:35 Urine pH 7.5 (4.5-7.5) 08/21/23 11:35 Ur Specific Dalton 1.008 (1.000-1.030) 08/21/23 11:35 Urine Protein Negative (Negative) 08/21/23 11:35 Urine Glucose (UA) Negative (Negative) 08/21/23 11:35 Urine Ketones Negative (Negative) 08/21/23 11:35 Urine Blood Negative (Negative) 08/21/23 11:35 Urine Nitrite Negative (Negative) 08/21/23 11:35 Urine Bilirubin Negative (Negative) 08/21/23 11:35 Urine Urobilinogen Negative (Negative) 08/21/23 11:35 Ur Leukocyte Esterase Negative (Negative) 08/21/23 11:35 Blood Type B Negative 08/21/23 20:55 Antibody Screen NEGATIVE 08/21/23 20:55 Impressions Hip/Pelvis X-Ray 08/21/23 10:07 XR hip RT 2V w pelvis CLINICAL HISTORY: Fall. COMPARISON: Right hip radiographs January 27, 2021. FINDINGS: There is a displaced subcapital right femoral neck fracture. This fracture is age indeterminate but new since radiographs of December 28, 2020. Apparent resorption of a portion of the right femoral neck. Severe right hip osteoarthritis is noted with marked joint space narrowing with subchondral sclerosis and cystic change. No additional fractures are identified on this exam. IMPRESSION: 1. Displaced subcapital right femoral neck fracture. This fracture is age indeterminate. 2. Severe right hip osteoarthritis. Marked right hip joint space narrowing with subchondral sclerosis and flattening of the right femoral head with remodeling of the acetabulum. ACT 112: Negative or not required by law. Electronically signed by: Haresh Anderson M.D. 08/21/2023 11:[address] 08/21/23 10:08 CT OF THE HEAD WITHOUT CONTRAST CLINICAL HISTORY: fall on thinners COMPARISON STUDY: Head CT May 17, 2022. CT DOSE: 1094.1 mGy.cm TECHNIQUE: Helical axial images of the head were obtained without IV contrast. Automated exposure control was utilized for the study. A dose lowering technique was utilized adhering to the principles of ALARA. FINDINGS: No acute intracranial hemorrhage, midline shift or mass effect is present. The ventricular system is stable. White matter hypodensities are similar to prior exam and favor small vessel disease. The basal cisterns are patent. No extra-axial collections are present. There are no findings to suggest acute dural sinus thrombosis or acute territorial infarct. No significant calvarial abnormalities are present. Visualized portions of the sinuses and mastoid air cells are clear. IMPRESSION: 1. No acute intracranial findings. 2. No calvarial fractures. ACT 112: Negative or not required by law. Electronically signed by: Haresh Anderson M.D. 08/21/2023 11:17 AM Chest X-Ray 08/21/23 11:24 XR chest 1V not portable HISTORY: preop COMPARISON: Chest 03/15/2018. FINDINGS: No pneumothorax. No pleural effusions. The lungs are clear. The heart remains borderline enlarged. No focal lung consolidations to suggest a pneumonia. No evidence for pulmonary edema. There are old, healed left-sided rib fractures. Prior cholecystectomy. There is mild elevation of the right hemidiaphragm. IMPRESSION: No acute process. ACT 112: Negative or not required by law. Electronically signed by: Scott Cortes M.D. 08/21/2023 11:51 AM Hip X-Ray 08/22/23 15:20 AP AND CROSSTABLE LATERAL RIGHT HIP History: Right total hip arthroplasty. Degenerative arthritis. Postop. FINDINGS: The patient is status post a right total hip arthroplasty. The hardware is intact. No fracture or dislocation. Skin philippe are in place. IMPRESSION: Right total hip arthroplasty. No evidence for hardware complication ACT 112: Negative or not required by law. Electronically signed by: Scott Cortes M.D. 08/22/2023 4:23 PM Hospital Course (1) Displaced fracture of right femoral neck: (1) Displaced fracture of right femoral neck: Patient sustained a mechanical ground-level fall on the morning of 08/20 Right hip x-ray on arrival revealed displaced subcapital right femoral neck fracture CT revealed no acute findings S/p right total hip arthroplasty 08/21 Will need ortho f/u in 2-3 weeks Pain management with Tylenol prn, and morphine 2mg prn-> may require po oxycodone for pain control over the next few days for breakthrough pain (2) Atrial fibrillation: Continue metoprolol, digoxin Digoxin level pending Eliquis currently held in the setting of recent surgery- can resume 24 hours post-op at 2.5mg BID for 08/23 and then can resume 5mg BID 08/24 (3) Hypertension: Holding Entresto- mildly hypotensive post-op; would plan to resume when blood pressure is stable (4) 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 Appears euvolemic at present and was mildly hypotensive throughout the day today. If hypotensive tomorrow morning, would be reasonable to hold for a day. (6) History of ischemic cardiomyopathy: [place] with [place]. 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: (5) Chronic systolic (congestive) heart failure: (6) History of ischemic cardiomyopathy: (7) H/O healed fragility fracture: Total Time Total Time Spent Total Time Spent (In Minutes): <30 Discharge Plan Discharge Items Patient Disposition: Transfer Inpatient Rehab Fac Reason For Visit: FALL, RIGHT HIP PAIN Discharge Diagnosis: Right hip fracture Activity: Per Instructions section Non-emergency contact: Primary Care Provider Call non-emergency contact if: you have any medication questions Follow-up/Referrals: Percy Kennedy III, CRNP [Primary Care Provider] - Alli Begum MD [Physician] - (2-3 week f/u ) Diet: Regular Addtl Attending Provider Instructions: (1) Displaced fracture of right femoral neck: Patient sustained a mechanical ground-level fall on the morning of 08/20 Right hip x-ray on arrival revealed displaced subcapital right femoral neck fracture CT revealed no acute findings S/p right total hip arthroplasty 08/21 Will need ortho f/u in 2-3 weeks Pain management with Tylenol prn, and morphine 2mg prn-> may require po oxycodone for pain control over the next few days for breakthrough pain (2) Atrial fibrillation: Continue metoprolol, digoxin Digoxin level pending Eliquis currently held in the setting of recent surgery- can resume 24 hours post-op at 2.5mg BID for 08/23 and then can resume 5mg BID 08/24 (3) Hypertension: Holding Entresto- mildly hypotensive post-op; would plan to resume when blood pressure is stable (4) 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 Appears euvolemic at present and was mildly hypotensive throughout the day today. If hypotensive tomorrow morning, would be reasonable to hold for a day. (6) History of ischemic cardiomyopathy: Patient [place] with [place]. [place] [facility] [place] Hx of presumed ischemic cardiomyopathy with an EF in the range of 25% with an LAD wall motion abnormality in 03/2018 Echo in 05/2018 with EF at 45% (7) H/O healed fragility fracture: - concern for osteoporosis given hip fracture - Vit D= 15.7; plan for vitamin D repletion - DEXA as an OP Pending Studies at Discharge: No Stand-Alone Forms: My [facility] Skilled Items Patient informed of condition?: Yes DNR: Yes Discharge Level of Care: Acute rehab Communicable Disease: No Discharge Prognosis: Stable Lines: None Urinary Catheter: No Medications and DC Order Prescriptions: New furosemide 20 mg Tablet 20 mg PO SuTuThSa 30 Days Qty: 18 0RF Rx Instructions: Hold of hypotensive cholecalciferol (vitamin D3) 25 mcg (1,000 unit) Capsule 25 mcg PO QAM 30 Days Qty: 30 0RF Continued furosemide 40 mg tablet 40 mg PO UD Rx Instructions: 40 mg (1 tablet) daily on Sunday, Sunday, Sunday, 1/2 tab (20mg) on all other days of week multivitamin tablet 1 tab PO QPM Rx Instructions: Unable to verify OTC meds with patient at this date/time. (DME) Bedside Commode Misc See Rx Instructions .Route Qty: 1 0RF Rx Instructions: As directed glimepiride 2 mg tablet 2 mg PO DAILY Qty: 90 3RF (DME) FreeStyle Daphne 14 Day Sensor Kit See Rx Instructions .ROUTE .MEDSUPPLY Qty: 1 5RF Rx Instructions: Apply every 14 days pravastatin 80 mg tablet 80 mg PO DAILY Qty: 90 3RF digoxin 125 mcg (0.125 mg) tablet 125 mcg PO QAM Qty: 90 3RF (DME) diaper,brief,adult,disposable misc See Dose Instructions .ROUTE .MEDSUPPLY Qty: 32 0RF Dose Instruction: As directed Rx Instructions: As directed (DME) FreeStyle Daphne 10 Day [place] Misc See Rx Instructions .ROUTE .MEDSUPPLY Rx Instructions: Test blood sugar up to three times a day (DME) FreeStyle Daphne 2 Sensor Kit See Rx Instructions .Route Qty: 1 12RF Rx Instructions: Replace every 14 days Farxiga 5 mg tablet 5 mg PO DAILY Qty: 90 3RF metoprolol succinate 100 mg tablet extended release 24 hr 100 mg PO UD Rx Instructions: Take 100mg w/ 25mg tablet to equal 125mg daily metoprolol succinate 25 mg tablet extended release 24 hr 25 mg PO UD Rx Instructions: Take 25mg w/ 100mg tablet to equal 125mg daily fenofibrate nanocrystallized [Tricor] 145 mg tablet 145 mg PO DAILY levothyroxine [Synthroid] 50 mcg tablet 0 mcg PO DAILY Rx Instructions: Per pharmacy, the patient has been picking up Levothyroxine 25mcmcg by mouth every morning the last 90 days, and Levothyroxine 50mcg once during those 90 days, however when I called the PCP office, they state that the patient should be taking Levothyroxine 50mcmcg by mouth every morning. Unable to verify with patient at this date/time if she has been taking 2 x 25mcg daily or just 25mcg daily. apixaban 5 mg tablet 5 mg PO BID Qty: 0 0RF Rx Instructions: 2.5mg BID 08/23 and then resume 5mg BID on 08/24 Held Entresto 24-26 mg tablet 1 tab PO BID Hold Instructions: Hold until blood pressure improves No Action (DME) diaper,brief,adult,disposable Misc See Dose Instructions .ROUTE .MEDSUPPLY Qty: 32 0RF Dose Instruction: As directed Rx Instructions: As directed Discharge Orders: Discharge Order (Routine); Ordered 08/23/23 Ordered By: Mary Barker Admission Data Admit Date/Time: 08/21/23 12:54 Attending Provider: Luigi Schmidt Admit Provider: Scott Saleh Primary Care Provider: Percy Kennedy III Other Providers: [facility]; Gabe Puri; Dejuan Pan; Gabe James; Alli Begum Supervising Physician Co-Signing Physician Notes I personally examined the patient and verified all armendariz points of history and exam, discussed case, and agree with decision making with Dr Barker Seen just before physical therapy. a little bit easily confused, but also easy to redirect. No acute complaints. Nursing notes no acute issues. Vitals noted, in general she is awake and alert mildly confused but no distress. HEENT normocephalic atraumatic mucous membranes moist. Breathing unlabored no accessory muscle use good effort. Skin shows no rashes no pallor or icterus. Neuro without focal deficits Presumed osteoporotic hip fracturestable postop. PT/OT eval and treat. Pain control. rehab today delirium/metabolic encephalopathylikely due to all of the circumstances surrounding her hip fracture, OR, anesthesia, etc.at the same time seems fairly mild. DVT prophylaxisper orthopedics. Otherwise as above. Resident Activity Tracking Resident Involvement: Resident Care Provided Care Provided: Adult Hospital Medicine
--- NOTE | 2023-08-23 18:06 | Billing Data ---
Date of Service August 23, 2023 Coding Level of Care Code 96069 IN/OBS DISCH 30 MIN/LESS
== END 2023-08-23 16:40 | DRG 522 ==
LOC: ED 09:53 → EDINP 12:54 → SUATTDRO 12:54 → 2N 13:03
DX: I50.22 Chronic systolic (congestive) heart failure; W18.39XA Other fall on same level, initial encounter; I08.1 Rheumatic disorders of both mitral and tricuspid valves; M16.11 Unilateral primary osteoarthritis, right hip; I44.5 Left posterior fascicular block; Z66 Do not resuscitate; M80.051A Age-related osteoporosis with current pathological fracture, right femur, initial encounter for fracture; Z91.040 Latex allergy status; Z88.5 Allergy status to narcotic agent; I25.5 Ischemic cardiomyopathy; Z79.01 Long term (current) use of anticoagulants; I13.0 Hypertensive heart and chronic kidney disease with heart failure and stage 1 through stage 4 chronic kidney disease, or unspecified chronic kidney disease; N18.9 Chronic kidney disease, unspecified; E11.22 Type 2 diabetes mellitus with diabetic chronic kidney disease; I45.10 Unspecified right bundle-branch block; I48.11 Longstanding persistent atrial fibrillation; E78.5 Hyperlipidemia, unspecified; Y92.039 Unspecified place in apartment as the place of occurrence of the external cause